=== PATIENT | female | born 1945 | race Caucasian/White ===

== ENCOUNTER 2024-10-23 06:18 | Day surgery (SDC) | payer OTHER, SELFPAY ==
[2024-10-23] VITALS (15 sets, daily range): BP systolic 92–148; BP diastolic 55–103; BMI 27.8
[2024-10-23] MEDS: TYLENOL 325 MG PO (09:06)
== END 2024-10-23 11:50 | disposition home or self-care (01) ==
LOC: CATH 06:18
PROVIDERS: ATTENDING PHYSICIAN Internal Medicine Cardiovascular Disease; OTHER PHYSICIAN Internal Medicine Cardiovascular Disease
DX: Z01.810 Encounter for preprocedural cardiovascular examination (principal); I34.0 Nonrheumatic mitral (valve) insufficiency; I48.92 Unspecified atrial flutter; Z79.01 Long term (current) use of anticoagulants; Z79.890 Hormone replacement therapy
CPT/HCPCS: 99152; 93458; C1894; Q9967

== ENCOUNTER → 2024-11-05 11:06 | Outpatient (REF) | payer OTHER, SELFPAY | LOC: RAD 11:06 | PROVIDERS: ATTENDING PHYSICIAN Thoracic Surgery (Cardiothoracic Vascular Surgery); REFERRING PHYSICIAN Internal Medicine Cardiovascular Disease | DX: I34.0 Nonrheumatic mitral (valve) insufficiency (principal); Z01.810 Encounter for preprocedural cardiovascular examination | CPT/HCPCS: 71275; 74174; Q9967 ==

== ENCOUNTER 2024-11-18 05:09 | Inpatient (IN) | payer OTHER, SELFPAY ==
[2024-10-20 08:31] VITALS: BMI 27.6
[2024-10-20 09:10] LABS: Urine Character Clear (Clear)
[2024-10-20 09:12] LABS: Hematocrit 39.9 % (37.0-47.0); Hemoglobin 13.2 g/dL (12.0-16.0); Mean Corp Hgb Conc. 33.1 g/dL (33.0-37.0); Mean Corpuscular Volume 86.6 fL (81.0-99.0); Nucleated Red Blood Cells % 0 %; Platelet Count 207 10^3/uL (130-400); Red Cell Dist. Width 13.6 % (11.5-14.5)
[2024-10-20 09:24] LABS: INR 1.17; PT 15.2 Sec (11.4-14.6)
[2024-10-20 09:27] LABS: Urine Red Blood Cell 0-2 /HPF (0-2); Urine Squamous Cell 26-30 /LPF (Few); Urine White Cell 16-20 /HPF (0-5)
[2024-10-20 10:03] LABS: ALT (SGPT) 24 U/L (0-35); AST (SGOT) 32 U/L (14-36); Albumin 4.7 g/dl (3.5-5.0); Alkaline Phosphatase 53 U/L (38-126); Blood Urea Nitrogen 21 mg/dl (7-17); Calcium 9.9 mg/dl (8.4-10.2); Carbon Dioxide 26 mmol/L (22-30); Chloride 105 mmol/L (98-107); Estimated Creatinine Clearance 47 ml/min; Glucose 92 mg/dl (70-99); Potassium 4.1 mmol/L (3.5-5.1); Sodium 140 mmol/L (135-145); Total Protein 8.3 g/dl (6.3-8.2); eGFR > 60.00
[2024-10-20 10:35] LABS: Glycohemoglobin (HgbA1c) 5.7 % (4.0-5.6)
--- NOTE | 2024-10-20 14:53 | CM ---
spoke with pt and daughter in PAT's, we discussed preop MVR teaching including driving and lifting restrictions. she is prev indep , lives alone in a ranch home with a basement and 5 steps to enter. she is going to her daughterds home after dc-
nadir shy- [phone] she has the cardiac educ book, soap and instructions. cm role explained and all questions answered. plan is for MV repair 11/18.
--- NOTE | 2024-10-23 08:49 | ITS.CL.CATH ---
Substation Maintenance Technician - Catheterization
Cardiac Catheterization
Procedure Report:
CARDIAC CATHETERIZATION REPORT
Date of Procedure: 10/23/2024
Referring: Jeffrey Villalobos M.D.
INDICATION: Preop for mitral valve repair.
PROCEDURE:
1. Left heart catheterization.
2. Coronary angiography.
A total of 17 minutes of procedural/moderate sedation was utilized. An independent medical appliance maker was present to assist with and help manage the patient's level of consciousness and physiologic status.
ACCESS:
1. 6 Bulgarian right radial artery using a modified Seldinger technique.
CATHETERS:
1. 5 Bulgarian JR4.
2. 5 Bulgarian JL 3.5.
HEMODYNAMIC DATA
Weight (kg): 70.8
AO (s/d/x, mmHg): 129/77/100
LV (s/x mmHg): 132/14
LEFT VENTRICULOGRAPHY: Not performed.
CORONARY ANGIOGRAPHY
Dominance: Right.
Left Main: Normal size, bifurcating vessel. There is no coronary artery disease
LAD: Normal size vessel giving rise to 1 significant diagonal. There is no coronary artery disease.
Ramus: Congenitally absent.
Circumflex: Normal size, nondominant vessel giving rise to 2 obtuse marginals before terminating as a left posterolateral branch. There is no coronary artery disease.
RCA: Normal size, dominant vessel. There is no coronary artery disease.
INTERVENTION(S)
None.
Closure Device: Vascular band.
Radiation (mGy): 277.68
DAP (cm2.Gy): 23.0622
Fluoroscopy time (minutes): 1.6
CONCLUSIONS
1. Right dominant circulation with no coronary artery disease.
2. Mildly elevated filling pressures (LVEDP = 14 mmHg at 70.8 kg).
3. Severe mitral valve regurgitation by echocardiography.
RECOMMENDATIONS:
1. Expectant management after cardiac catheterization via right radial approach.
2. Limited weight bearing on the right wrist for one week.
3. Proceed with preoperative surgical planning as previously discussed.
4. Discontinue aspirin. Patient may resume apixaban this evening.
Copy to: Jeffrey Villalobos M.D., SUKUMAR Mckinney, Lonnie Phan M.D.
Alexander Alvarado DO, FACC, FACP
[2024-11-18] VITALS (17 sets, daily range): BP systolic 88–154; BP diastolic 52–90; BMI 27.6; BMI 26.8
[2024-11-18] MEDS: PROTONIX 40 MG PO (05:24)
[2024-11-18] MEDS: BACTROBAN 2% OINTMENT 1 APPLIC NASAL ×2 (05:25→19:49)
[2024-11-18] MEDS: MAGNESIUM OXIDE 400 MG PO (05:25)
[2024-11-18] MEDS: LOPRESSOR 25 MG PO (05:25)
--- NOTE | 2024-11-18 05:45 | PTCARENOTE ---
pt admitted into room 2265, VS and weight obtained. pt confirms 2 showers @ home and NPO since midnight. admission questions and med rec completed. clip prep and CHG wipes done. ABO drawn and sent. pre-op meds given. daughter at bedside.
--- NOTE | 2024-11-18 06:16 | W.CVOR.SURPR ---
CVOR Surgeon Immed Pre Op
-
I have examined this patient prior to performance of the scheduled procedure.
The patient's condition is unchanged from the time of the dictated/written History and
Physical and the patient is able to undergo the scheduled procedure.
MV repair, LA MAZE, LAAE
[2024-11-18 07:52] LABS: ACT+ - POC 118 Seconds (82-134)
[2024-11-18 08:10] LABS: Urine Character Clear (Clear)
[2024-11-18 08:37] LABS: ACT+ - POC 525 Seconds (82-134)
[2024-11-18 08:59] LABS: B.E. - POC 1.3 mmol/L; Glucose - POC 113 mg/dl (70-99); HCO3 - POC 29 mmol/L (21-28); Hematocrit - POC 33 % PCV (37-47); Hemodilution- POC No; Hemoglobin Calculated - POC 11.2; Ionized Calcium - POC 1.20 mmol/L (1.15-1.33); Lactate - POC 1.35 mmol/L (0.36-0.75); O2 Saturation %Calculated-POC 99.5 % (94-98); PCO2 - POC 56 mmHg (35-48); PO2 - POC 185 mmHg (83-108); Potassium - POC 4.1 mmol/L (3.5-5.1); Sodium - POC 145 mmol/L (136-145); Specimen Type - POC Arterial; pH - POC 7.31 (7.35-7.45)
--- NOTE | 2024-11-18 09:05 | CM ---
pt in OR today, cm following
[2024-11-18 09:12] LABS: ACT+ - POC 652 Seconds (82-134)
[2024-11-18 09:28] LABS: B.E. - POC 3.6 mmol/L; Glucose - POC 152 mg/dl (70-99); HCO3 - POC 26 mmol/L (21-28); Hematocrit - POC 29 % PCV (37-47); Hemodilution- POC Yes; Hemoglobin Calculated - POC 10.0; Ionized Calcium - POC 0.92 mmol/L (1.15-1.33); Lactate - POC 0.62 mmol/L (0.36-0.75); O2 Saturation %Calculated-POC 100.0 % (94-98); PCO2 - POC 31 mmHg (35-48); PO2 - POC 541 mmHg (83-108); Potassium - POC 5.1 mmol/L (3.5-5.1); Sodium - POC 140 mmol/L (136-145); Specimen Type - POC Arterial; pH - POC 7.53 (7.35-7.45)
[2024-11-18 09:39] LABS: ACT+ - POC 535 Seconds (82-134)
[2024-11-18 09:56] LABS: B.E. - POC 3.8 mmol/L; Glucose - POC 158 mg/dl (70-99); HCO3 - POC 28 mmol/L (21-28); Hematocrit - POC 30 % PCV (37-47); Hemodilution- POC Yes; Hemoglobin Calculated - POC 10.3; Ionized Calcium - POC 1.04 mmol/L (1.15-1.33); Lactate - POC 1.01 mmol/L (0.36-0.75); O2 Saturation %Calculated-POC 100.0 % (94-98); PCO2 - POC 43 mmHg (35-48); PO2 - POC 370 mmHg (83-108); Potassium - POC 4.2 mmol/L (3.5-5.1); Sodium - POC 143 mmol/L (136-145); Specimen Type - POC Arterial; pH - POC 7.43 (7.35-7.45)
[2024-11-18 10:09] LABS: ACT+ - POC 541 Seconds (82-134)
[2024-11-18 10:40] LABS: B.E. - POC 1.7 mmol/L; Glucose - POC 131 mg/dl (70-99); HCO3 - POC 27 mmol/L (21-28); Hematocrit - POC 33 % PCV (37-47); Hemodilution- POC Yes; Hemoglobin Calculated - POC 11.2; Ionized Calcium - POC 1.06 mmol/L (1.15-1.33); Lactate - POC 1.96 mmol/L (0.36-0.75); O2 Saturation %Calculated-POC 99.9 % (94-98); PCO2 - POC 42 mmHg (35-48); PO2 - POC 284 mmHg (83-108); Potassium - POC 3.8 mmol/L (3.5-5.1); Sodium - POC 146 mmol/L (136-145); Specimen Type - POC Arterial; pH - POC 7.41 (7.35-7.45)
[2024-11-18 10:43] LABS: ACT+ - POC 164 Seconds (82-134)
--- NOTE | 2024-11-18 10:56 | W.PN.CT.SURG ---
CT Surgery Operative Note
-
CARDIAC SURGERY OPERATIVE REPORT
Preoperative Diagnosis: Exam is mitral valve degeneration with flail segment of the posterior leaflet and severe mitral valve insufficiency, atrial fibrillation
Postoperative Diagnosis: Same
Procedure(s) Performed:
1. Right mini thoracotomy with mini cutdown of the right femoral artery and percutaneous left femoral vein cannulation under CYNTHIA guidance
2. Radical mitral valve repair (triangular section of the lateral segment of the P2 scallop and primary reapproximation of P2 onto P1, 32 mm band annuloplasty)
3. Placement temporary ventricular pacing wires
4. Trans esophageal echocardiography
5. Surgical cryo maze of the left atrium
6. Left atrial appendage exclusion using a 35 mm clip
Date of Surgery: 11/18/2024
Comorbidities:
1. 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
2. Severe mitral valve insufficiency, symptomatic
3. Paroxysmal atrial fibrillation on chronic anticoagulation
4. Hypothyroidism
5. Hyperlipidemia
6. Moderate tricuspid valve insufficiency, functional
Attending Surgeon: Lonnie Phan MD, MS
Assistants: Barbie Hwang PA-C (present and necessary for retraction, suctioning, exposure, suture management, wound closure, etc. under my direction), Cassandra Reyes MD (did portions of the mitral valve repair)
Anesthesiology: Kael Obando MD and Brenden Mercer CRNA
Scrub and Circulating RNs: Levy Mendenhall RN, Rika Cam RN
Baler Operator: Demetri Burger CCP
Anesthesia: GETA
EBL: per perfusion records
Products: none
CPB Time: 107 minutes
Aortic Cross Clamp Time: 86 minutes
Indication(s) for Procedures: This is a very functional 79-year-old female with known mitral valve insufficiency who recently developed atrial fibrillation. She also has some shortness of breath with exertion but otherwise is in very good health.
Given her new onset arrhythmia and symptoms, she was offered surgical repair of her valve as well as addressing her atrial fibrillation at time of surgery.
Mitral Valve Description: Thickening about the anterior posterior leaflets, there is a very obvious flail segment of the posterior leaflet at the P2 scallop towards the lateral aspect. Moderate dilation of the annulus, moderate to severe dilation
of the left atrium.
Implants:
1. 32 mm Garcia physio flex annuloplasty band, serial #[id number]
2. 35mm left atrial appendage clip, serial number [id number]
Specimen:
1. Triangular resection of the posterior leaflet, P2 scallop
MAZE Lesion Sets:
1. Box lesion to posterior LA wall
2. RUDI lesion + RUDI Exclusion + Division of Ligament of Alvarez
3. Coronary sinus lesion
4. Posterior mitral annular line toward P2/P3
Findings: Left ventricular ejection fraction preoperatively was preserved at 65% with no significant regional wall motion abnormalities. She did have PA pressures in the 40s to 50s. There was a mild to moderate degree of tricuspid valve
insufficiency. Following surgery her EF remained the same at 65% with no new regional wall motion abnormalities. She was being paced with an intermittent junctional rhythm. Her mitral valve was myxomatous with a flail segment of P2 and multiple
torn cords. This was resected in a triangular fashion down to the level of the annulus. There was a remnant of P2 on the lateral aspect which I also resected. I then primarily closed the remnant P2 onto P1 essentially obliterating the cleft.
This was done with multiple 5-0 Prolene's in an interrupted [id number] fashion. Next a total of 11 nonpledgeted 2 Ethibond sutures were placed from trigone to trigone securing a 32 mm band annuloplasty with core knots. I had initially placed
2 Hamilton-Torito sutures to the papillary muscle heads preemptively in the event that I would need them later. Testing of the valve revealed good coaptation hide of approximate 8 mm and not concerning for IKER. These Hamilton-Torito sutures were then cut and
removed. A cryo maze was also performed, this included the lesion set listed above. The left atrial appendage ders also clipped through the transverse sinus using a 35mm device. Ensure atrial visualization of the os demonstrated good closure with
no remnant left atrial appendage. After coming off of cardiopulmonary bypass, there is no systolic anterior motion of the anterior mitral valve leaflets, no LVOT obstruction, no residual mitral valve insufficiency, good excursion of both the
anterior and posterior leaflets of the mitral valve, and a mean grain of 2 across the valve. No blood products were required. No inotropic support was started. She resumed her sinus rhythm after short period of ventricular pacing.
Description of Procedure: The patient was brought to the operating room and placed supine in the table with their right side bumped up and right arm down. Arterial and central access was performed by anesthesiology. The patient was prepped from chin
to toes in the typical sterile fashion. Trans esophageal evaluation of cardiac function and all valvular structures was conducted. Before commencing, a time out was performed by all members of the team. All were in agreement with the procedure and
laterality and I proceeded. A small right groin incision was made to expose the common femoral artery and I opted to access the left common femoral vein percutaneously using Seldinger technique. A 5-6 cm right lateral muscle sparing thoracotomy
sweeping the pec major muscle cephalad at the serratus anterior was performed over the 4th intercostal space verified by visualization of the hilum. A total of 35 units of heparin was given. The common femoral artery and vein were cannulated under
transesophageal guidance using open Seldinger technique. The arterial line was verified to have an appropriate bounce and pressure correlating with testing. Once the ACT was above 400, retrograde autologous priming was done and we commenced
cardiopulmonary bypass. Target core temperature was 34�C.
Carbon dioxide was used to flood the field. The course of the phrenic nerve was identified to prevent injury. The pericardium was opened and two stay sutures were placed to facilitate a ``pericardial table.�� The oblique sinus was developed followed
by the inter atrial groove. An antegrade root vent was inserted and secured with a pursestring suture. The pump flow and mean arterial pressure were lowered and an aortic cross clamp was applied to the ascending aorta. A total of 1.2L initial dose
of Antegrade cardioplegia was delivered. We had rapid electro myocardial quiescence at 300 cc of cardioplegia. The ventricle was monitored for distension by echocardiogram during this time. Once cardioplegia was complete, the root vent was turned
on and the left atrial appendage was clipped across the transverse sinus. The left atrium was incised and enlarged. A left atrial lift retractor was placed. The mitral valve was inspected. Cryo maze was then performed using the lesion set above..
The mitral valve was repaired as described above. The left atriotomy was closed with 3-0 prolene in a running fashion leaving a ventricular vent in place to de-air. After filling the heart, the vent was removed and the prolene was secured with a
corknot. Unipolar ventricular pacing wire was placed on the base of the right ventricle. The patient was placed into Trendelenburg position and pump flows were lowered. The clamp was slowly removed with the root vent turned on. De-airing maneuvers
were performed. We started to rewarm with a target of 36.5�C.
As the heart recovered, the mitral valve and ventricular function were assessed under transesophageal echocardiogram. The LV vent and root vents were removed. Once weaning parameters were satisfactory, cardiopulmonary bypass flow was lowered until
we were off cardiopulmonary bypass the mitral valve was inspected again. All surgical sites were inspected for hemostasis and appeared appropriate. We briefly resumed cardiopulmonary bypass to remove the root vent and the Ethibond suture was then
secured with a core knot over pledgets. The lines were clamped and the arterial was relocated to the venous cannula to give back volume. A test dose of protamine was delivered and patient was monitored for any adverse reactions followed by complete
protamine dosing. The femoral vessels were decannulated and repaired as indicated. One 19F Norberto drain remained in the pleural space and threaded into the pericardium. There was an excellent palpable distal pulse to the COMMERCIAL PRODUCER cannulation site. Local
analgesia was injected to the thoracotomy. The incision was closed in layers in a running fashion.
All instrument, sponge, and needle counts were confirmed to be correct x 2 at the end of the operation. The patient was transferred to the cardiac intensive care unit in critical but stable condition.
I, Dr. Lonnie Phan, was present, scrubbed for, and performed all critical elements of this procedure.
Lonnie Phan MD, MS
Cardiothoracic Surgeon
[facility]
This dictation was created using the [employer] dictation system. Please excuse any grammatical, typographical, or 'sound alike' errors
--- NOTE | 2024-11-18 11:16 | W.PN.CD ---
Addendum entered and electronically signed by Kye Wang MD 11/18/24 13:09:
I saw and examined the patient.
The EARLY INTERVENTION SPECIALIST's note was reviewed and I agree with the note.
She Patient seen postop remains intubated. Patient on low-dose pressor with Levophed. In sinus rhythm. ECG with nonspecific T wave abnormality.
- Wean from (per protocol)
- wean pressors as tolerated
- continue postoperative care as directed by CT surgery
- monitor on telemetry for recurrent A-fib
- h/o PAF and on Eliquis preop. Resume anticoagulation when safe from a postoperative standpoint.
Original Note:
Today's Communication / Plan
-
Follow telemetry & I/Os
Postoperative management per CT surgery
Impression / Plan
-
I/P: 79F with MVP with mitral regurgitation, paroxysmal atrial fibrillation, hypertension, and dyslipidemia who presented for mitral valve surgery
Primary cmo: Dr. Jeffrey Villalobos
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 Phan 11/18/2024
- 40% FiO2 with PEEP 8.0, lung recruitment per pulmonary/CTS, CXR pending
- Mildly elevated filling pressures with an LVEDP of 14 mmHg at 70.8 kg during cardiac catheterization, follow I/Os & weights
- EKG with LAFB
- Not requiring ionotropic support
- Postoperative management per CT surgery
Paroxysmal atrial fibrillation
- Follow telemetry
- Oral Anticoagulation: Apixaban 5 mg twice daily on hold, last dose 11/15/2024, resumption per CTS
- [id number]: Score at least 4 (HTN, age 75 or more, female gender)
Tricuspid regurgitation, moderate
Hypertension, chronic and stable follow postoperative
Dyslipidemia, on rosuvastatin 40 mg
Prediabetes, HgbA1c 5.7%
SUBJECTIVE:
Operative notes reviewed. Patient is intubated and sedated.
Physical Exam
Vital Signs/Labs
Vital Signs
Temp Pulse Resp BP Pulse Ox
97.9 F 86 18 144/78 95
11/18/24 05:24 11/18/24 05:24 11/18/24 05:24 11/18/24 05:29 11/18/24 05:24
11/17/24 11/18/24 11/19/24
06:59 06:59 06:59
Actual Weight 70.9 kg
PT 15.2 Sec (11.4-14.6) H 10/20/24 08:41
INR 1.17 10/20/24 08:41
Physical Exam
Constitutional: No acute distress
EENT: Anicteric and Moist mucous membranes
Cardiovascular: Rhythm & rate is regular, S1S2 is normal and Murmur/rub/gallop absent
Respiratory: Lungs clear to auscul. and Other (Mechanical ventilation via ETT)
GI: Soft and Distention absent
Neuro/Psych: Other (Sedated)
Other: Skin (Warm and dry without edema)
Data Reviewed
-
Date of Service: November 18, 2024
EKG: Report Reviewed by me
Echo: Report Reviewed by me
Labs: Labs Reviewed by me
Old Records: Reviewed
[2024-11-18 11:48] LABS: Glucose - Point of Care 95 mg/dl (70-99)
[2024-11-18 11:49] LABS: B.E. - POC -2.5 mmol/L; Glucose - POC 92 mg/dl (70-99); HCO3 - POC 23 mmol/L (21-28); Hematocrit - POC 28 % PCV (37-47); Hemodilution- POC Yes; Hemoglobin Calculated - POC 9.6; Ionized Calcium - POC 1.31 mmol/L (1.15-1.33); Lactate - POC 4.07 mmol/L (0.36-0.75); O2 Saturation %Calculated-POC 92.7 % (94-98); PCO2 - POC 39 mmHg (35-48); PO2 - POC 68 mmHg (83-108); Potassium - POC 3.4 mmol/L (3.5-5.1); Sodium - POC 142 mmol/L (136-145); Specimen Type - POC Arterial; pH - POC 7.37 (7.35-7.45)
[2024-11-18 11:58] LABS: B.E. -1.4 mmol/L; HCO3 25.2 mmol/L (21-28); O2 Saturation % 97.5 % (94-98); PCO2 50 mmHg (32-35); PO2 78 mmHg (83-108); Potassium 3.1 mMOL/L (3.5-5.1); Sodium 140 mMOL/L (136-145)
[2024-11-18] MEDS: LR 250 ML IV ×3 (12:00→15:30)
[2024-11-18] MEDS: KCL 50 IV ×2 (12:05→13:06)
[2024-11-18 12:07] LABS: Hematocrit 31.6 % (37.0-47.0); Hemoglobin 10.5 g/dL (12.0-16.0); Platelet Count 110 10^3/uL (130-400)
[2024-11-18] MEDS: NSS 500 IV (12:07)
[2024-11-18] MEDS: ANCEF 10 IV ×2 (12:08)
[2024-11-18] MEDS: THERAGRAN PO (12:08)
[2024-11-18 12:15] LABS: Blood Urea Nitrogen 13 mg/dl (7-17); Estimated Creatinine Clearance 48 ml/min; Glucose 93 mg/dl (70-99); Magnesium 2.6 mg/dl (1.6-2.3)
[2024-11-18 12:18] LABS: INR 1.35; PT 16.9 Sec (11.4-14.6)
[2024-11-18 12:19] LABS: APTT 28.0 Sec (23.4-35.0)
--- NOTE | 2024-11-18 12:40 | PTCARENOTE ---
pt received from CVOR @~1140, RASS -5. core temp 95.4F, bear hugger applied as ordered. SR on the monitor, HR 60-70s. V wire in place, VVI 40/10. SBP 90-120s, Levophed gtt running as ordered. PAP 20-30s/10s. CVP ~1-5. CI >2. palpable pulses. no
edema. pt mechanically ventilated, ETT #7.0, 22cm@lip. SIMV 14, TV 500, PEEP 8, FIO2 40%. 91-95% POX. CTx1, no air leak or crepitus noted. pt abdomen round, hypoactive BS. Hargrove in place, clear yellow urine. surgical incisions LINETTE, approximated. L
groin dressing intact. RIJ Cordis/swan maintained. R radial Unique flushed, zeroed, and calibrated. PIV. insulin gtt running as ordered. lab work drawn as ordered, EKG performed. CXR completed. LR given as ordered. potassium repleted as ordered.
daughter updated. see worklist for VS, I&O, and assessment.
[2024-11-18 13:00] LABS: Glucose - Point of Care 147 mg/dl (70-99)
[2024-11-18 13:02] LABS: B.E. - POC -0.3 mmol/L; Blood Urea Nitrogen - POC 11 mg/dl (3-120); Chloride - POC 108 mmol/L (96-111); Creatinine - POC 0.83 mg/dl (0.3-1.0); Glucose - POC 140 mg/dl (70-99); HCO3 - POC 25 mmol/L (21-28); Hematocrit - POC 30 % PCV (37-47); Hemodilution- POC Yes; Hemoglobin Calculated - POC 10.3; Ionized Calcium - POC 1.24 mmol/L (1.15-1.33); Lactate - POC 2.60 mmol/L (0.36-0.75); O2 Saturation %Calculated-POC 93.0 % (94-98); PCO2 - POC 42 mmHg (35-48); PO2 - POC 68 mmHg (83-108); Potassium - POC 4.0 mmol/L (3.5-5.1); Sodium - POC 144 mmol/L (136-145); Specimen Type - POC Arterial; pH - POC 7.38 (7.35-7.45)
[2024-11-18] MEDS: TYLENOL PO ×2 (13:09→19:25)
--- NOTE | 2024-11-18 13:42 | CON.INTV ---
Consultation
Consultation Request
Date/Time Consultation Requested: 11/18/2024
Date/Time Consultation Performed: 11/18/2024
Medical History
-
Chief Complaint: Dyspnpea
History of Present Illness:
Patient is a 79-year-old female with known history of myxomatous mitral valve degeneration with progressive mitral regurgitation, who followed up with cardiology services outpatient. She also noted to have atrial fibrillation and was having
shortness of breath. Additional workup included a recent echocardiogram in March 2024 which showed mild pulmonary hypertension with worsening mitral regurgitation. She subsequently had a coronary angiogram performed which did not show any
significant coronary artery disease. Patient was then evaluated by cardiothoracic surgery service and was admitted to the hospital today for mitral valve repair along with maze procedure and left atrial appendage exclusion. Postprocedure, she was
admitted to CVICU and component technician consultation was requested for further input.
Past medical history. Hypothyroidism, hyperlipidemia, hypertension, mitral regurgitation, atrial fibrillation
Social history prior history of smoking.
Allergies / Home Medications
Allergies
Allergy/AdvReac Type Severity Reaction Status Date / Time
bee venom protein (honey bee) Allergy Swelling Verified 10/23/24 06:35
Home Medications
�Medication �Instructions �Recorded �Confirmed �Last Taken �Type
apixaban 5 mg tablet (Eliquis) 5 mg PO BID 10/17/24 11/18/24 11/15/24 09:00 History
atenolol 25 mg tablet 25 mg PO DAILY 10/17/24 11/18/24 11/17/24 09:00 History
calcium 315 mg (as 2 tab PO DAILY 10/17/24 11/18/24 11/11/24 History
citrate)-vitamin D3 6.25 mcg (250
unit) tablet (Citracal + Vitamin D
Maximum)
levothyroxine 100 mcg tablet 100 mcg PO DAILY 10/17/24 11/18/24 11/17/24 09:00 History
multivitamin 1 tab PO DAILY 10/17/24 11/18/24 11/11/24 History
rosuvastatin 40 mg tablet 40 mg PO QPM 10/17/24 11/18/24 11/17/24 18:00 History
Review of Systems
-
Unable to Obtain full review of systems at this time due to: Patient Intubation
Vitals / Labs / Diagnostic Testing
Vital Signs
Temp Pulse Resp BP Pulse Ox
96.4 F L 67 12 99/61 95
11/18/24 13:00 11/18/24 13:05 11/18/24 13:05 11/18/24 13:00 11/18/24 13:05
Lab Data
11/18/24 11:48
Laboratory Results
11/18/24
11:48
PT 16.9 H
INR 1.35
APTT 28.0
pH 7.31 L
pCO2 50 H
pO2 78 L
HCO3 25.2
O2 Delivery Level
Diagnostic Testing:
Physical Exam
-
HEENT: Normocephalic
Cardiovascular: S1/S2
Respiratory: Clear and Non-Labored Respirations
GI: Soft and Non Distended
Neurology: Awake
Skin: Warm
General: Comfortable
Assessment
-
Patient is a 79-year-old female with moderate to severe aortic stenosis, s/p radical mitral valve repair, surgical cryo maze procedure of left atrium, left atrial appendage exclusion, POD # 0
Titrate off pressors per protocol, currently Levophed infusing at 2, MAP of 71. CVP of 3.
ECHO reviewed with normal LVEF
PA catheter readings reviewed, , mean 21.
Management of chest tubes per primary service
Intubated/off sedation, somewhat drowsy, anticipate continued improvement
Pain control
RASS goal of 0 to -1
Intubated for procedure, SBT trial when patient able to spontaneously breath
Current vent settings: SIMV, PEEP 10, 60% FiO2.
AB.31/50/78
CXR appears to have mild vascular congestion with left lower lobe atelectasis, ETT in good position, lines/tubes in place
Lower PEEP as tolerated, can initiate SBT once PEEP is down to 8 and FiO2 50%. If PaO2 on ABG continues to be low, recommend getting a follow-up chest x-ray to evaluate for worsening pulmonary edema or atelectasis.
Extubate per protocol
Maintain supplement oxygen as needed
No prior known history of pulmonary disease
Prior PFTs reviewed
Can add nebulizers if needed
Aspiration precautions
Encouraged incentive spirometry, OOB/ambulation/early mobility
Advance diet as tolerated following extubation
GI prophylaxis: Protonix
Monitor critical I/O's
Hargrove/chest tube output
Hb/platelets postoperatively, mild drift
Trend CBC for now
Can transfuse if indicated for Hb <7, plt <50 in surgical patients
DVT prophylaxis including SCDs
Insulin protocol initiated and ongoing
Transition to SQ/off as indicated per team
Other medical diagnoses:
- Mild Pulmonary HTN. Group II with underlying severe MR
- Hyperlipidemia
- Hypothyroidism
- Paroxysmal atrial fibrillation on chronic anticoagulation
- Moderate tricuspid insufficiency
- HTN
- Pre-DM, A1c 5.7%
Critical Care time 62 mins -- The patient is admitted for acute critical illness for the treatment of vital organ failure and/or prevention of further life-threatening conditions. Total care includes time spent in review of history, physical exam,
medications, hemodynamic/ventilator parameters, laboratory data, imaging and discussion with house staff, pharmacy, respiratory therapy, family day care worker, and nursing
Data:
CTA A/P 11/2024: 1. Normal caliber thoracic aorta with moderate calcified plaque within the arch and descending thoracic aorta.
2. Moderate calcified plaque within the abdominal aorta with focal sac like ectasia posteriorly just inferior to the take off the SMA.
3. Mildly enlarged heart with dilated appearance of the left atrium.
4. Pelvic floor dysfunction with likely prolapsed uterus.
5. Indeterminate right adnexal lesion measuring 5.8 x 4.6 cm with slightly increased attenuation along its medial wall. No definitive enhancement. This may represent a complex cyst. Consider further evaluation with dedicated pelvic ultrasound or
comparison to any prior outside studies.
6. Nonspecific elongated cystic lesion or cluster of cysts along the gastric hepatic ligament measuring 2.7 x 1.0 cm.
7. Additional findings above.
CYNTHIA 11/2024: Moderate to severe mitral regurgitation, prolapsed P2 with a flail segment.
Moderate MAC. Annulus measures 33 x 37 mm.
Normal left ventricular size and systolic function. Stage II diastolic dysfunction.
The ascending aorta has mild atheroma and calcifications.
Mild left atrial enlargement.
Mild tricuspid regurgitation.
LHC 10/2024: 1. Right dominant circulation with no coronary artery disease.
2. Mildly elevated filling pressures (LVEDP = 14 mmHg at 70.8 kg).
3. Severe mitral valve regurgitation by echocardiography.
ECHO 03/2024: 1. Normal LV function. EF 60 to 65% with grade 2 diastolic dysfunction.
2. Normal RV function
3. Mitral valve leaflets are thickened and myxomatous in appearance. There is
moderate posterior mitral valve leaflet prolapse. There is mitral
regurgitation directed anteromedially suggesting a posterior leaflet
abnormality. Degree of mitral regurgitation is always difficult to assess when
regurgitation is eccentric, it is at least moderate, likely moderate to severe
(3+), more significant mitral regurgitation could be considered as well.
4. Moderate left atrial enlargement not appreciated from volumetric
measurements. Other chamber sizes are normal.
5. Mild increase in the right ventricular systolic pressure with moderate
tricuspid regurgitation
PASP 39.
[2024-11-18 14:05] LABS: Glucose - Point of Care 147 mg/dl (70-99)
[2024-11-18] MEDS: DUONEB 3 ML INH (14:22)
--- NOTE | 2024-11-18 14:39 | PTCARENOTE ---
pt awake, drowsy. able to follow commands, MAN. attempted CPAP trial, apneic periods. pt placed on SIMV 14, TV 500, PEEP 10, FIO2 60% per AMBULANCE OFFICER Seda. POX 99%.
[2024-11-18 15:07] LABS: Glucose - Point of Care 104 mg/dl (70-99)
[2024-11-18] MEDS: PACERONE PO (15:08)
[2024-11-18] MEDS: NEURONTIN PO (15:08)
[2024-11-18 15:50] LABS: Glucose - Point of Care 112 mg/dl (70-99)
[2024-11-18 15:51] LABS: B.E. - POC -1.1 mmol/L; Blood Urea Nitrogen - POC 14 mg/dl (3-120); Chloride - POC 110 mmol/L (96-111); Creatinine - POC 0.87 mg/dl (0.3-1.0); Glucose - POC 125 mg/dl (70-99); HCO3 - POC 25 mmol/L (21-28); Hematocrit - POC 35 % PCV (37-47); Hemodilution- POC Yes; Hemoglobin Calculated - POC 11.8; Ionized Calcium - POC 1.24 mmol/L (1.15-1.33); Lactate - POC 2.91 mmol/L (0.36-0.75); O2 Saturation %Calculated-POC 97.7 % (94-98); PCO2 - POC 48 mmHg (35-48); PO2 - POC 108 mmHg (83-108); Potassium - POC 3.9 mmol/L (3.5-5.1); Sodium - POC 147 mmol/L (136-145); Specimen Type - POC Arterial; pH - POC 7.33 (7.35-7.45)
--- NOTE | 2024-11-18 16:08 | PTCARENOTE ---
RT at bedside to extubate patient. Pt extubated at 1608 to 6L NC. POX 97%. Pt alert and oriented x4. IS completed 500mL achieved.
[2024-11-18] MEDS: ZOFRAN 4 MG IV (16:31)
[2024-11-18 16:46] LABS: Hematocrit 33.0 % (37.0-47.0); Hemoglobin 11.1 g/dL (12.0-16.0); Platelet Count 141 10^3/uL (130-400)
[2024-11-18] MEDS: OFIRMEV 100 IV (16:51)
[2024-11-18] MEDS: DILAUDID 0.25 MG IV (17:37)
[2024-11-18] MEDS: ANCEF 5 IV (17:38)
[2024-11-18] MEDS: CRESTOR 40 MG PO (17:57)
[2024-11-18] MEDS: LOW STRENGTH ASPIRIN 81 MG PO (17:57)
--- NOTE | 2024-11-18 18:00 | PTCARENOTE ---
pt c/o surgical site pain, PRN Dilaudid 0.25mg IVP given as ordered. IS encouraged. SENIOR CHEMIST aware of H&H results.
[2024-11-18 18:05] LABS: Glucose - Point of Care 101 mg/dl (70-99)
--- NOTE | 2024-11-18 19:40 | PTCARENOTE ---
Pacing wires inappropriately pacing. ma changed from [address] PA Ed[address]
[2024-11-18] MEDS: SENOKOT 8.6 MG PO (19:48)
[2024-11-18 20:08] LABS: Glucose - Point of Care 98 mg/dl (70-99)
[2024-11-18 20:29] LABS: Blood Urea Nitrogen 15 mg/dl (7-17); Calcium 8.3 mg/dl (8.4-10.2); Carbon Dioxide 25 mmol/L (22-30); Chloride 110 mmol/L (98-107); Estimated Creatinine Clearance 55 ml/min; Glucose 106 mg/dl (70-99); Magnesium 2.2 mg/dl (1.6-2.3); Potassium 4.5 mmol/L (3.5-5.1); Sodium 139 mmol/L (135-145); eGFR > 60.00
--- NOTE | 2024-11-18 20:31 | PTCARENOTE ---
Patient received from RN @ 1900. Patient lying in bed w/ call eugene in reach. AOx3 SR w/ prolonged QT on monitor. BP 116/53 HR 69. Heart sounds distant. Radial and pedal pulses present. No edema noted. V-wires present and set to 40/5/2.
Lungs diminished in bases. POX 95% 4L NC. IS 1000. Right lateral CT set to -20 suction draining serosanguineous fluid. No crepitus, tidaling, or air leaks noted. Bowel sounds hypoactive. Hargrove draining clear yellow urine. All surgical sites
C/D/I. Right lateral CT dressing small amount old drainage on dressing noted. RIJ w/ swan @ 45 PAP 28/12 CVP 4 CI 2.03. Right radial A-line patent and intact. All lines leveled and zeroed. Insulin and Levo infusing per protocol.
[2024-11-18] MEDS: CALCIUM GLUCONATE 130 MG IV (20:55)
[2024-11-18] MEDS: PACERONE 200 MG PO (21:17)
[2024-11-18] MEDS: NEURONTIN 100 MG PO (21:17)
[2024-11-18 22:13] LABS: Glucose - Point of Care 115 mg/dl (70-99)
--- NOTE | 2024-11-18 22:47 | W.PN.CT ---
Assessment / Plan
-
Assessment:
-S/P Right mini thoracotomy/Radical mitral valve repair (triangular section of the lateral segment of the P2 scallop and primary reapproximation of P2 onto P1, 32 mm band annuloplasty)/Surgical cryo maze of the left atrium/Left atrial appendage
exclusion using a 35 mm clip, by Dr. Phan, 11/18/24, pod #1
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
-Severe mitral valve insufficiency, symptomatic
-Moderate tricuspid valve insufficiency, functional
-Paroxysmal atrial fibrillation on chronic anticoagulation
-S/P DCCV @ [facility] 2 months ago
-LVEF 60-65% preop, 55-60% postop per intraop CYNHTIA
-Hypothyroidism
-Hyperlipidemia
-Prediabetes (hgb A1C 5.7)
-HPV
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
-Former tobacco use (quit 10yrs ago)
-Anxiety
-Acute postop blood loss/Anemia (stable without blood transfusion)
-Acute postop thrombocytopenia (stable without active bleed)
-Acute postop atelectasis
-Acute postop hypoxemia
-Acute postop respiratory acidosis
-Acute postop hypokalemia
-Acute postop hypovolemia with subsequent hypervolemia
Plan:
-No major issues overnight. Hemodynamically and neurologically intact
-Slow to awaken from anesthesia postop
-Successfully extubated on 11/18/24 @ 1608
-Weaned off Levophed gtt last night. Remains on insulin gtt per protocol
-Last CI, MVO2 , U/O since OR
-Monitor chest tube output: R pleural/med:
-Cont. current meds (ASA, Amiodarone, Lopressor-was on Atenolol @ home, Synthroid, Crestor, Protonix)
-D/C'd swan and a-line @ 0430
-Will d/c faustin catheter @ 0600
-Maintain temporary PW (will likely pull tomorrow)
-Maintain cordis for meds and phlebotomy
-Will need d/c of left groin stich
-Will need repeat echo tomorrow to reassess MV repair
-Wean O2 as tolerated
-Encourage use of IS
-OOB into chair/Ambulate
Subjective
-
Date of Service: November 18, 2024
Objective Data
-
Lab Results
11/18/24 15:50
11/18/24 19:57
PT 16.9 Sec (11.4-14.6) H 11/18/24 11:48
INR 1.35 11/18/24 11:48
APTT 28.0 Sec (23.4-35.0) 11/18/24 11:48
Vital Signs
Vital Signs
Temp Pulse Resp BP Pulse Ox
98.4 F 72 16 114/69 93
11/18/24 22:00 11/18/24 22:00 11/18/24 22:00 11/18/24 22:00 11/18/24 22:00
CT Intake/Output/Weight
11/18/24 11/18/24 11/19/24
06:59 18:59 06:59
Intake Total 1366.5 / 1525.4 158.9 / 1525.4
Output Total 620 / 900 280 / 900
Balance 746.5 / 625.4 -121.1 / 625.4
SaO2: 93
--- NOTE | 2024-11-18 23:14 | PTCARENOTE ---
Patient reassessed. All surgical sites intact. SR w/ prolonged QT on monitor. PVC couplets noted, CT PA Ed aware. BP 129/54 HR 70 POX 97% 4L NC.
[2024-11-18 23:57] LABS: Glucose - Point of Care 91 mg/dl (70-99)
[2024-11-19] VITALS (21 sets, daily range): BP systolic 92–128; BP diastolic 41–107; PULSE 89; O2SAT 94–96; BMI 27.6
--- NOTE | 2024-11-19 02:15 | DOWNTIME ---
There was a [employer] Client Filling Layer Up Downtime on 11/19/2024 from 0100 to 11/19/2024 at 0215. Downtime documentation of patient's care, including medication administrations, has been reconciled in the electronic record per guidelines. Refer to the
patient's paper chart under the miscellaneous tab to see printed paper medication records and downtime forms.
[2024-11-19] MEDS: ANCEF 5 IV ×2 (02:25→10:46)
[2024-11-19 03:00] LABS: Hematocrit 29.6 % (37.0-47.0); Hemoglobin 10.0 g/dL (12.0-16.0); Mean Corp Hgb Conc. 33.8 g/dL (33.0-37.0); Mean Corpuscular Volume 84.8 fL (81.0-99.0); Platelet Count 108 10^3/uL (130-400); Red Cell Dist. Width 13.7 % (11.5-14.5)
[2024-11-19 03:22] LABS: Blood Urea Nitrogen 16 mg/dl (7-17); Calcium 9.3 mg/dl (8.4-10.2); Carbon Dioxide 25 mmol/L (22-30); Chloride 109 mmol/L (98-107); Estimated Creatinine Clearance 55 ml/min; Glucose 114 mg/dl (70-99); Magnesium 2.0 mg/dl (1.6-2.3); Potassium 4.6 mmol/L (3.5-5.1); Sodium 138 mmol/L (135-145); eGFR > 60.00
[2024-11-19 04:00] LABS: Glucose - Point of Care 100 mg/dl (70-99)
--- NOTE | 2024-11-19 04:05 | W.PN.CT ---
Today's Communication / Plan
-
Plan:
-No major issues overnight. Hemodynamically and neurologically intact
-Slow to awaken from anesthesia postop
-Successfully extubated on 11/18/24 @ 1608
-Weaned off Levophed gtt last night. Remains on insulin gtt per protocol
-Last CI 2.5, MVO2 69.3%, U/O since OR 1095 mL
-Currently in NSR @ 76 bpm
-Monitor chest tube output: R pleural/med: 145/245
-Cont. current meds (ASA, Amiodarone, Lopressor-was on Atenolol @ home, Synthroid, Crestor, Protonix)
-D/C'd swan and a-line @ 0430
-Will d/c faustin catheter @ 0600
-Maintain temporary PW (will likely pull tomorrow)
-Maintain cordis for meds and phlebotomy
-Will need d/c of left groin stitch
-Will need repeat echo tomorrow to reassess MV repair
-Wean O2 as tolerated
-Encourage use of IS
-OOB into chair/Ambulate
Assessment / Plan
-
Assessment:
-S/P Right mini thoracotomy/Radical mitral valve repair (triangular section of the lateral segment of the P2 scallop and primary reapproximation of P2 onto P1, 32 mm band annuloplasty)/Surgical cryo maze of the left atrium/Left atrial appendage
exclusion using a 35 mm clip, by Dr. Phan, 11/18/24, pod #1
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
-Severe mitral valve insufficiency, symptomatic
-Moderate tricuspid valve insufficiency, functional
-Paroxysmal atrial fibrillation on chronic anticoagulation
-S/P DCCV @ [facility] 2 months ago
-LVEF 60-65% preop, 55-60% postop per intraop CYNTHIA
-Hypothyroidism
-Hyperlipidemia
-Prediabetes (hgb A1C 5.7)
-HPV
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
-Former tobacco use (quit 10yrs ago)
-Anxiety
-Acute postop blood loss/Anemia (stable without blood transfusion)
-Acute postop thrombocytopenia (stable without active bleed)
-Acute postop atelectasis
-Acute postop hypoxemia
-Acute postop respiratory acidosis
-Acute postop hypokalemia
-Acute postop hypovolemia with subsequent hypervolemia
Discussed patient care with: Cardiology, Nursing, Respiratory Therapy, Pharmacy and Care Team
Subjective
Procedure
S/P Right mini thoracotomy/Radical mitral valve repair (triangular section of the lateral segment of the P2 scallop and primary reapproximation of P2 onto P1, 32 mm band annuloplasty)/Surgical cryo maze of the left atrium/Left atrial appendage
exclusion using a 35 mm clip, by Dr. Phan, 11/18/24
-
Date of Service: November 19, 2024
Pt c/o incisional pain, otherwise feels well
Objective Data
-
Lab Results
11/19/24 02:37
11/19/24 02:37
PT 16.9 Sec (11.4-14.6) H 11/18/24 11:48
INR 1.35 11/18/24 11:48
APTT 28.0 Sec (23.4-35.0) 11/18/24 11:48
Vital Signs
Vital Signs
Temp Pulse Resp BP Pulse Ox
98.3 F 77 20 110/59 93
11/19/24 03:56 11/19/24 04:00 11/19/24 04:00 11/19/24 04:00 11/19/24 04:00
CT Intake/Output/Weight
11/18/24 11/18/24 11/19/24
06:59 18:59 06:59
Intake Total 1366.5 / 1682.5 316.0 / 1682.5
Output Total 620 / 1340 720 / 1340
Balance 746.5 / 342.5 -404.0 / 342.5
SaO2: 93 (2L)
Physical Exam
-
General: Awake, Oriented and AOx3
Cardiovascular: Regular rate & rhythm, No Murmurs, No Rub and No Gallop
Respiratory: Decreased Breath Sounds (at bases, otherwise clear)
Sternum: Stable
Incision: Clean, Dry, Intact and Dressing Intact
Extremities: No Edema
Data Reviewed
-
Lab Results: Results Reviewed
Medications: Active Meds Reviewed
Chest X-Ray: Report Reviewed and Image Reviewed
ECG: Report Reviewed and Image Reviewed
--- NOTE | 2024-11-19 04:44 | PTCARENOTE ---
Patient reassessed. SR w/ prolonged QT. VSS. 6 beat run of VT noted @ [address] PA Ed aware. A-line and swan removed per CT PA Ed.
[2024-11-19 06:07] LABS: Glucose - Point of Care 111 mg/dl (70-99)
[2024-11-19] MEDS: TYLENOL 975 MG PO ×3 (06:16→20:34)
[2024-11-19] MEDS: SYNTHROID 100 MCG PO (06:16)
--- NOTE | 2024-11-19 07:55 | W.PN.INTV ---
Today's Communication / Plan
Recommendations
- Incentive spirometry
- Wean oxygen as tolerated, target saturation 90% or above
- Transition insulin infusion per protocol
- Outpatient follow-up with [facility] pulmonary clinic for formal pulmonary function testing and 6-minute walk test
- Supervisor Money Room service will sign off once patient is transferred out of CVICU.
Assessment
-
Patient is a 79-year-old female with moderate to severe aortic stenosis, s/p radical mitral valve repair, surgical cryo maze procedure of left atrium, left atrial appendage exclusion, POD # 1
Titrated off pressors per protocol, MAP of 86, not requiring any pressors
ECHO reviewed with normal LVEF
PA catheter removed
Management of chest tubes per primary service
Extubated now, saturating 92% on 2 L supplemental oxygen. X-ray with mild atelectasis in the lower lobes, predominantly on the left side, encouraged incentive spirometry
Maintain supplement oxygen as needed
No prior known history of pulmonary disease, however has smoked from teen age until age 69, intermittently. Mild intermittent cough with phlegm production. Might have underlying COPD. Will have her folloe up in Pulmonary clinic for PFTs and 6 min
walk test as out patient.
Can add nebulizers if needed
Aspiration precautions
Encouraged incentive spirometry, OOB/ambulation/early mobility
Advance diet as tolerated following extubation
GI prophylaxis: Protonix
Monitor critical I/O's
Hargrove/chest tube output
Hb/platelets postoperatively, mild drift
Trend CBC for now
Can transfuse if indicated for Hb <7, plt <50 in surgical patients
DVT prophylaxis including SCDs
Insulin protocol initiated and ongoing
Transition to SQ/off as indicated per team
Other medical diagnoses:
- Mild Pulmonary HTN. Group II with underlying severe MR
- Hyperlipidemia
- Hypothyroidism
- Paroxysmal atrial fibrillation on chronic anticoagulation
- Moderate tricuspid insufficiency
- HTN
- Pre-DM, A1c 5.7%
- H/o Smoking, teen age to age 69. Out patient PFTs.
Critical Care time 42 mins -- The patient is admitted for acute critical illness for the treatment of vital organ failure and/or prevention of further life-threatening conditions. Total care includes time spent in review of history, physical exam,
medications, hemodynamic/ventilator parameters, laboratory data, imaging and discussion with house staff, pharmacy, respiratory therapy, resident physician, and nursing
Data:
CTA A/P 11/2024: 1. Normal caliber thoracic aorta with moderate calcified plaque within the arch and descending thoracic aorta.
2. Moderate calcified plaque within the abdominal aorta with focal sac like ectasia posteriorly just inferior to the take off the SMA.
3. Mildly enlarged heart with dilated appearance of the left atrium.
4. Pelvic floor dysfunction with likely prolapsed uterus.
5. Indeterminate right adnexal lesion measuring 5.8 x 4.6 cm with slightly increased attenuation along its medial wall. No definitive enhancement. This may represent a complex cyst. Consider further evaluation with dedicated pelvic ultrasound or
comparison to any prior outside studies.
6. Nonspecific elongated cystic lesion or cluster of cysts along the gastric hepatic ligament measuring 2.7 x 1.0 cm.
7. Additional findings above.
CYNTHIA 11/2024: Moderate to severe mitral regurgitation, prolapsed P2 with a flail segment.
Moderate MAC. Annulus measures 33 x 37 mm.
Normal left ventricular size and systolic function. Stage II diastolic dysfunction.
The ascending aorta has mild atheroma and calcifications.
Mild left atrial enlargement.
Mild tricuspid regurgitation.
LHC 10/2024: 1. Right dominant circulation with no coronary artery disease.
2. Mildly elevated filling pressures (LVEDP = 14 mmHg at 70.8 kg).
3. Severe mitral valve regurgitation by echocardiography.
ECHO 03/2024: 1. Normal LV function. EF 60 to 65% with grade 2 diastolic dysfunction.
2. Normal RV function
3. Mitral valve leaflets are thickened and myxomatous in appearance. There is
moderate posterior mitral valve leaflet prolapse. There is mitral
regurgitation directed anteromedially suggesting a posterior leaflet
abnormality. Degree of mitral regurgitation is always difficult to assess when
regurgitation is eccentric, it is at least moderate, likely moderate to severe
(3+), more significant mitral regurgitation could be considered as well.
4. Moderate left atrial enlargement not appreciated from volumetric
measurements. Other chamber sizes are normal.
5. Mild increase in the right ventricular systolic pressure with moderate
tricuspid regurgitation
PASP 39.
Subjective Dataa
Subjective Data
Date of Service:
Date of Service: November 19, 2024
Subjective:
Patient comfortably sitting in chair in no acute distress.
Review of Systems
Genitourinary: Other (All 14 systems reviewed and negative except as stated above in the history of present illness.)
Objective Data
Data Reviewed
Vital Signs / I&O / Oxygen:
Vital Signs
Temp Pulse Resp BP Pulse Ox
98.3 F 80 16 108/61 93
11/19/24 03:56 11/19/24 06:00 11/19/24 06:00 11/19/24 06:00 11/19/24 06:00
Intake and Output
11/18/24 11/19/24 11/20/24
06:59 06:59 06:59
Intake Total 1726.1 / 1726.1
Output Total 1535 / 1535
Balance 191.1 / 191.1
SaO2 [SIMV] 98
SaO2 93
Nasal Cannula flow liters per 2
minute
Physical Exam
General: Comfortable
HEENT: Normocephalic
Cardiovascular: S1-S2 and Peripheral Edema (Trace edema )
Respiratory: Clear and Non-Labored Respirations
GI: Soft and Distended
Neurology: Awake
Skin: Warm
Labs/Micro/Reports
Lab Data
11/19/24 02:37
11/19/24 02:37
Laboratory Results
11/18/24 11/18/24
11:48 16:00
PT 16.9 H
INR 1.35
APTT 28.0
pH 7.31 L Cancelled
pCO2 50 H Cancelled
pO2 78 L Cancelled
HCO3 25.2 Cancelled
O2 Delivery Level Cancelled
[2024-11-19 07:57] LABS: Glucose - Point of Care 108 mg/dl (70-99)
--- NOTE | 2024-11-19 08:11 | W.PN.CD ---
Today's Communication / Plan
-
- Restart Metoprolol and ASA
- When bleeding risk is low, switch to Eliquis.
Impression / Plan
-
I/P: 79F with MVP with mitral regurgitation, paroxysmal atrial fibrillation, hypertension, and dyslipidemia s/p Right mini thoracotomy/Radical mitral valve repair (triangular section of the lateral segment of the P2 scallop and primary
reapproximation of P2 onto P1, 32 mm band annuloplasty)/Surgical cryo maze of the left atrium/Left atrial appendage exclusion using a 35 mm clip, by Dr. Phan, 11/18/24.
Primary bass singer: Dr. Jeffrey Villalobos
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 Phan 11/18/2024
- Extubated now.
- Off the Levophed.
- EKG with sinus and LAFB
- Not requiring ionotropic support
- Postoperative management per CT surgery
- Temp epicardial wires in place.
- Chest tubes as per CTS
- Metoprolol started.
Paroxysmal atrial fibrillation
- Follow telemetry
- s/p Cryo Maze and RUDI clipped.
- Oral Anticoagulation: Apixaban 5 mg twice daily on hold, last dose 11/15/2024, resumption per CTS
- [id number]: Score at least 4 (HTN, age 75 or more, female gender)
Tricuspid regurgitation, moderate
Hypertension, chronic and stable follow postoperative
Dyslipidemia, on rosuvastatin 40 mg
Prediabetes, HgbA1c 5.7%
SUBJECTIVE:
Extubated. off pressors. OOB and IS
Physical Exam
Vital Signs/Labs
Vital Signs
Temp Pulse Resp BP Pulse Ox
98.3 F 74 16 109/72 92
11/19/24 03:56 11/19/24 07:55 11/19/24 06:00 11/19/24 07:00 11/19/24 07:55
11/18/24 11/19/24 11/20/24
06:59 06:59 06:59
Actual Weight 70.9 kg 73 kg
11/19/24 02:37
11/19/24 02:37
PT 16.9 Sec (11.4-14.6) H 11/18/24 11:48
INR 1.35 11/18/24 11:48
APTT 28.0 Sec (23.4-35.0) 11/18/24 11:48
Magnesium 2.0 mg/dl (1.6-2.3) 11/19/24 02:37
Physical Exam
Constitutional: No acute distress and Comfortable
EENT: Anicteric and Moist mucous membranes
Cardiovascular: Rhythm & rate is regular, Pedal edema is absent and JVD pressure is normal
Respiratory: Respiratory effort normal, Wheeze Absent and Crackles Present
GI: Soft and Non tender
Neuro/Psych: Alert, Oriented and AO x 3
Data Reviewed
-
Date of Service: November 19, 2024
Medical Decision Making: Reviewed Test Results, Test Interpretation and Review of Case with other Provider
EKG: Tracing Personally Visualized and interpreted
Echo: Report Reviewed by me
Labs: Labs Reviewed by me
Old Records: Reviewed
Critical Care Time (in minutes): 35
--- NOTE | 2024-11-19 08:15 | PTCARENOTE ---
Assumed care of patient. Walking rounds completed. Pt assessed while she was sitting in the chair. Pt alert and oriented x4. Pt denies pain, shortness of breath, and nausea. Reports difficulty taking a deep breath in. MAN with equal strength
throughout. SR with prolonged QT with rates in the 70s. BP 102/56. Heart tones audible. Bilateral radial and DP pulses palpable. Trace ankle edema. Epicardial v-wire set to back up 40/5, no pacing noted. POX 93% on 2L NC. Lungs diminished
throughout. IS encouraged-750mL achieved. Right pleural/mediastinal chest tube to -20cm suction draining serosanguinous fluid, output WNL. No air leak, tidaling, crepitus. Abdomen soft, round, nontender. Hypoactive BS. Pt reports passing gas.
Tolerating clear liquid diet. DTV post faustin removal. Right lateral chest incision approximated with skin glue, [employer]. Mid chest puncture site approximated, LINETTE. Left groin puncture site with 4x4, CDI. Right groin incision approximated with skin glue,
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 CT dressing CDI. Right IJ cordis intact with NSS KVO. Right AC 20 PIV intact with insulin infusing per critical care glycemic protocol. See MAR for medication administration. See worklist for complete nursing assessment. Plan of care reviewed
and patient in agreement.
--- NOTE | 2024-11-19 08:15 | W.PN.ANS.POP ---
Anesthesia Post Operative
- Anesthesia Post Op Note
Vital Signs Stable-See Nursing Note: Yes
Airway Patent: Yes
Adequate Pain Control: Yes
Change in Mental Status: No
Current Postoperative Nausea & Vomiting: No
Anesthesia Complications: No
General Anesthetic Recall: No
Unplanned Admission: No
Post Op Hydration Adequate: Yes
- -
Pt OOB, no anesthesia related complications, VSS.
[2024-11-19 08:35] LABS: Glucose - Point of Care 113 mg/dl (70-99)
[2024-11-19] MEDS: BACTROBAN 2% OINTMENT 1 APPLIC NASAL ×2 (08:35→20:19)
[2024-11-19] MEDS: LIDOCAINE 4% PATCH 1 PATCH TOPICAL (08:35)
[2024-11-19] MEDS: PROTONIX 40 MG PO (08:36)
[2024-11-19] MEDS: LOPRESSOR 12.5 MG PO ×2 (08:36→20:19)
[2024-11-19] MEDS: LOW STRENGTH ASPIRIN 81 MG PO (08:36)
[2024-11-19] MEDS: SENOKOT 8.6 MG PO (08:36)
[2024-11-19] MEDS: MAGNESIUM OXIDE 400 MG PO ×2 (08:36→20:19)
[2024-11-19] MEDS: NEURONTIN 100 MG PO ×3 (08:36→21:24)
[2024-11-19] MEDS: THERAGRAN 1 TABLET PO (08:36)
[2024-11-19] MEDS: PACERONE 200 MG PO ×3 (08:36→21:24)
[2024-11-19] MEDS: NSS IV (08:47)
[2024-11-19 10:05] LABS: Glucose - Point of Care 104 mg/dl (70-99)
--- NOTE | 2024-11-19 12:00 | PTCARENOTE ---
Pt reassessed. Resting comfortably in the chair. SR with rates in the 70s. BP 98/56, denies dizziness, pain, shortness of breath, nausea. POX 93% on 1L NC. CT output WNL. Surgical sites stable. Insulin gtt d/c per orders. Remains DTV. No acute
changes.
[2024-11-19 12:01] LABS: Glucose - Point of Care 121 mg/dl (70-99)
--- NOTE | 2024-11-19 13:07 | PTCARENOTE ---
Pt bladder scanned for 255mL. Pt does not have urge to urinate at this time.
[2024-11-19] MEDS: FERRLECIT 110 MG IV (14:42)
[2024-11-19] MEDS: LASIX 40 MG IV (14:44)
--- NOTE | 2024-11-19 16:00 | PTCARENOTE ---
Pt reassessed. NSR on tele with rates in the 80s. POX 92% on 1L NC. Surgical sites stable. CT output WNL, draining serosanguineous fluid. 1 assist to stand to pivot to the commode. Pt voiding adequate amounts of clear yellow urine. Cordis and PIV
intact. No other acute changes.
[2024-11-19] MEDS: CRESTOR 40 MG PO (17:52)
--- NOTE | 2024-11-19 19:15 | PTCARENOTE ---
Patient received from RN @ 1900. Patient sitting in chair w/ call eugene in reach. AOx3. SR w/ prolonged QT on monitor. BP 110/50 HR 84. Heart sounds audible. V-wires set to 40/5/2. Radial and pedal pulses present. Bilateral trace ankle edema
noted. IS 750. POX 91% 1L NC. Lungs diminished in bases bilaterally. Right lateral CT draining serosanguineous fluid set to -20 suction. No crepitus, tidaling, or air leaks noted. Hypoactive bowel sounds. Voiding clear yellow urine. RIJ
cordis and Right PIV patent and intact. All surgical sites are C/D/I. See worklist for more details.
[2024-11-19] MEDS: SENOKOT PO ×2 (20:19→20:36)
[2024-11-19] MEDS: REMOVE LIDOCAINE PATCH 1 PATCH REMOVE (20:32)
[2024-11-20] VITALS (13 sets, daily range): BP systolic 85–153; BP diastolic 42–98; PULSE 88; O2SAT 94–97; BMI 27.7
--- NOTE | 2024-11-20 00:55 | PTCARENOTE ---
Patient reassessed. SR w/ prolonged QT. BP 95/48 HR 65 POX 92% 1L NC. Patient sleeping comfortably.
[2024-11-20 03:55] LABS: Hematocrit 27.5 % (37.0-47.0); Hemoglobin 9.1 g/dL (12.0-16.0); Mean Corp Hgb Conc. 33.1 g/dL (33.0-37.0); Mean Corpuscular Volume 86.2 fL (81.0-99.0); Platelet Count 101 10^3/uL (130-400); Red Cell Dist. Width 14.0 % (11.5-14.5)
[2024-11-20 04:18] LABS: Blood Urea Nitrogen 31 mg/dl (7-17); Calcium 8.5 mg/dl (8.4-10.2); Carbon Dioxide 31 mmol/L (22-30); Chloride 104 mmol/L (98-107); Estimated Creatinine Clearance 49 ml/min; Glucose 146 mg/dl (70-99); Magnesium 2.1 mg/dl (1.6-2.3); Potassium 4.6 mmol/L (3.5-5.1); Sodium 136 mmol/L (135-145); eGFR > 60.00
--- NOTE | 2024-11-20 04:45 | PTCARENOTE ---
Patient reassessed. SR on monitor. BP 109/50 HR 67 POX 93% 1L NC. Patient resting comfortably.
[2024-11-20] MEDS: SYNTHROID 100 MCG PO (05:25)
[2024-11-20] MEDS: TYLENOL 975 MG PO ×3 (05:25→20:14)
--- NOTE | 2024-11-20 05:53 | W.PN.CT ---
Today's Communication / Plan
-
-pod #2
-no issues overnight
-low BPs yesterday -tolerated BB and Amio, denies any dizziness
-CT output 85/210 in 12/24 hrs
-got 40 iv Lasix on 11/19 - UO 825/1975 in 12/24 hrs
-Echo on 11/21
-has pw (VVI 40 backup)
-current meds (ASA, Crestor, Lopressor 12.5 bid, Amio, Protonix, Mg)
-encourage IS, OOB, ambulate
Assessment / Plan
-
Assessment:
-S/P Right mini thoracotomy/Radical mitral valve repair (triangular section of the lateral segment of the P2 scallop and primary reapproximation of P2 onto P1, 32 mm band annuloplasty)/Surgical cryo maze of the left atrium/Left atrial appendage
exclusion using a 35 mm clip, by Dr. Phan, 11/18/24, pod #2
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
-Severe mitral valve insufficiency, symptomatic
-Moderate tricuspid valve insufficiency, functional
-Paroxysmal atrial fibrillation on chronic anticoagulation
-S/P DCCV @ [facility] 2 months ago
-LVEF 60-65% preop, 55-60% postop per intraop CYNTHIA
-Hypothyroidism
-Hyperlipidemia
-Prediabetes (hgb A1C 5.7)
-HPV
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
-Former tobacco use (quit 10yrs ago)
-Anxiety
-Acute postop blood loss/Anemia (stable without blood transfusion)
-Acute postop thrombocytopenia (stable without active bleed)
-Acute postop atelectasis
-Acute postop hypoxemia
-Acute postop respiratory acidosis
-Acute postop hypokalemia
-Acute postop hypovolemia with subsequent hypervolemia
Discussed patient care with: Nursing and Care Team
Subjective
Procedure
S/P Right mini thoracotomy/Radical mitral valve repair (triangular section of the lateral segment of the P2 scallop and primary reapproximation of P2 onto P1, 32 mm band annuloplasty)/Surgical cryo maze of the left atrium/Left atrial appendage
exclusion using a 35 mm clip, by Dr. Phan, 11/18/24
-
Date of Service: November 20, 2024
Objective Data
-
Lab Results
11/20/24 03:47
11/20/24 03:47
PT 16.9 Sec (11.4-14.6) H 11/18/24 11:48
INR 1.35 11/18/24 11:48
APTT 28.0 Sec (23.4-35.0) 11/18/24 11:48
Vital Signs
Vital Signs
Temp Pulse Resp BP Pulse Ox
98.4 F 65 15 109/50 94
11/20/24 03:51 11/20/24 04:00 11/20/24 00:00 11/20/24 03:53 11/20/24 04:00
CT Intake/Output/Weight
11/19/24 11/19/24 11/20/24
06:59 18:59 06:59
Intake Total 359.6 / 1738.4 849.6 / 889.6 40 / 889.6
Output Total 915 / 1575 1275 / 2185 910 / 2185
Balance -555.4 / 163.4 -425.4 / -1295.4 -870 / -1295.4
SaO2: 94
Physical Exam
-
General: Awake and AOx3
Cardiovascular: Regular rate & rhythm, No Murmurs and No Rub
Respiratory: Decreased Breath Sounds
Sternum: Stable
Incision: Clean, Dry and Intact
Extremities: Other (trace edema, L>R. 1+ DPs b/l)
Abdomen: soft, nontender, nondistended, + bowels sounds
Data Reviewed
-
Lab Results: Results Reviewed
Medications: Active Meds Reviewed
Chest X-Ray: Report Reviewed and Image Reviewed
ECG: Report Reviewed and Image Reviewed
--- NOTE | 2024-11-20 08:00 | PTCARENOTE ---
Patient received from prev RN. walking rounds completed. Patient sitting in chair at time of assessment. AOx3. SR HR 70s. temp V-wire set to 40/5/2. +pulses. IS 750. POX 93% 1L NC. Lungs diminished. Right lateral CT draining serosanguineous
fluid set to -20 suction. No crepitus, tidaling, or air leaks noted. +bowel sounds. BSC. RIJ cordis and Right PIV patent and intact. All surgical sites are C/D/I. will continue to monitor.
--- NOTE | 2024-11-20 08:06 | W.PN.CD ---
Today's Communication / Plan
-
routine post op care
Impression / Plan
-
I/P: 79F with MVP with mitral regurgitation, paroxysmal atrial fibrillation, hypertension, and dyslipidemia s/p Right mini thoracotomy/Radical mitral valve repair (triangular section of the lateral segment of the P2 scallop and primary
reapproximation of P2 onto P1, 32 mm band annuloplasty)/Surgical cryo maze of the left atrium/Left atrial appendage exclusion using a 35 mm clip, by Dr. Phan, 11/18/24.
Primary yard general car supervisor: Dr. Jeffrey Villalobos
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 Phan 11/18/2024
- Extubated, off drips
- EKG with sinus and LAFB
- Postoperative management per CT surgery
- Temp epicardial wires in place.
- Chest tubes as per CTS, out today
- can likely remove cordis
- Metoprolol started.
Paroxysmal atrial fibrillation
- Follow telemetry
- s/p Cryo Maze and RUDI clipped.
- Oral Anticoagulation: Apixaban 5 mg twice daily on hold, last dose 11/15/2024, resumption per CTS likely POD3
- [id number]: Score at least 4 (HTN, age 75 or more, female gender)
- cont. metop/amio
Tricuspid regurgitation, moderate
Hypertension, chronic and stable follow postoperative
Dyslipidemia, on rosuvastatin 40 mg
Prediabetes, HgbA1c 5.7%
CXR: bibasilar atelectasis
tele: sinus
SUBJECTIVE:
Extubated. off pressors. OOB and IS. Feels well
Physical Exam
Vital Signs/Labs
Vital Signs
Temp Pulse Resp BP Pulse Ox
36.9 C 65 15 109/50 94
11/20/24 03:51 11/20/24 04:00 11/20/24 00:00 11/20/24 03:53 11/20/24 05:57
11/19/24 11/20/24 11/21/24
06:59 06:59 06:59
Actual Weight 73 kg 73.1 kg
11/20/24 03:47
11/20/24 03:47
PT 16.9 Sec (11.4-14.6) H 11/18/24 11:48
INR 1.35 11/18/24 11:48
APTT 28.0 Sec (23.4-35.0) 11/18/24 11:48
Magnesium 2.1 mg/dl (1.6-2.3) 11/20/24 03:47
Physical Exam
Constitutional: Comfortable
Cardiovascular: Rhythm & rate is regular
Respiratory: Respiratory effort normal
Neuro/Psych: AO x 3
Data Reviewed
-
Date of Service: November 20, 2024
Medical Decision Making: Reviewed Test Results
EKG: Tracing Personally Visualized and interpreted
Labs: Labs Reviewed by me
[2024-11-20] MEDS: LIDOCAINE 4% PATCH 1 PATCH TOPICAL (08:55)
[2024-11-20] MEDS: PACERONE 200 MG PO ×3 (08:56→21:37)
[2024-11-20] MEDS: NEURONTIN 100 MG PO ×3 (08:56→21:36)
[2024-11-20] MEDS: TOPROL XL 25 MG PO (08:56)
[2024-11-20] MEDS: MAGNESIUM OXIDE 400 MG PO ×2 (08:56→20:15)
[2024-11-20] MEDS: THERAGRAN 1 TABLET PO (08:56)
[2024-11-20] MEDS: LOW STRENGTH ASPIRIN 81 MG PO (08:56)
[2024-11-20] MEDS: PROTONIX 40 MG PO (08:56)
[2024-11-20] MEDS: BACTROBAN 2% OINTMENT 1 APPLIC NASAL ×2 (08:56→20:23)
[2024-11-20] MEDS: SENOKOT PO (08:57)
[2024-11-20] MEDS: LASIX 40 MG IV (09:14)
--- NOTE | 2024-11-20 12:00 | PTCARENOTE ---
d/c ches ttube with SKIP MINER BLASTING at bedside without incident. will continue ot monitor.
[2024-11-20] MEDS: NSS 500 IV (15:25)
[2024-11-20] MEDS: FERRLECIT 110 MG IV (15:26)
--- NOTE | 2024-11-20 15:45 | PTCARENOTE ---
attempted to wean to RA. dropped to 88%. 1 L nc replaced.
[2024-11-20] MEDS: CRESTOR 40 MG PO (18:41)
--- NOTE | 2024-11-20 19:15 | PTCARENOTE ---
Patient received from RN @ 1900. Patient sitting in chair w/ call eugene in reach. AOx3. SR on monitor. BP 105/55 HR 74. Heart sounds audible. V-wires set to 40/5/2. Radial and pedal pulses present. Bilateral trace ankle edema noted. IS 1000.
POX 92% 1L NC. Lungs diminished in bases bilaterally. Hypoactive bowel sounds and good appetite. Voiding clear yellow urine. RIJ cordis and Right PIV patent and intact. All surgical sites are C/D/I. See worklist for more details.
[2024-11-20] MEDS: SENOKOT 8.6 MG PO (20:15)
[2024-11-20] MEDS: REMOVE LIDOCAINE PATCH 1 PATCH REMOVE (20:16)
[2024-11-20] MEDS: TOPROL XL PO (21:01)
[2024-11-21] VITALS (14 sets, daily range): BP systolic 91–125; BP diastolic 48–77; PULSE 95; O2SAT 95; BMI 27.3
--- NOTE | 2024-11-21 00:07 | PTCARENOTE ---
Patient reassessed. SR on monitor BP 108/67 HR 69 POX 90% 1L NC. Patient ambulated to bedside commode.
--- NOTE | 2024-11-21 04:37 | PTCARENOTE ---
Patient reassessed. SR on monitor. VSS. Labs obtained.
[2024-11-21 04:44] LABS: Hematocrit 29.1 % (37.0-47.0); Hemoglobin 9.5 g/dL (12.0-16.0); Mean Corp Hgb Conc. 32.6 g/dL (33.0-37.0); Mean Corpuscular Volume 87.7 fL (81.0-99.0); Platelet Count 117 10^3/uL (130-400); Red Cell Dist. Width 13.8 % (11.5-14.5)
[2024-11-21 05:41] LABS: Blood Urea Nitrogen 20 mg/dl (7-17); Calcium 8.2 mg/dl (8.4-10.2); Carbon Dioxide 33 mmol/L (22-30); Chloride 104 mmol/L (98-107); Estimated Creatinine Clearance 55 ml/min; Glucose 105 mg/dl (70-99); Magnesium 1.9 mg/dl (1.6-2.3); Potassium 4.0 mmol/L (3.5-5.1); Sodium 138 mmol/L (135-145); eGFR > 60.00
[2024-11-21] MEDS: SYNTHROID 100 MCG PO (06:56)
[2024-11-21] MEDS: TYLENOL 975 MG PO ×3 (06:57→21:09)
--- NOTE | 2024-11-21 07:42 | W.PN.CT ---
Today's Communication / Plan
-
-pod #3
-no issues overnight
-diuresed with 40 iv Lasix on 11/20 - UO 1450/3225 in 12/24 hrs
-Echo today
-current meds (ASA, Crestor, Toprol XL bid, Amio, Protonix, Mg). Plans to resume DOAC POD 3.
-encourage IS, OOB, ambulate
Assessment / Plan
-
Assessment:
-S/P Right mini thoracotomy/Radical mitral valve repair (triangular section of the lateral segment of the P2 scallop and primary reapproximation of P2 onto P1, 32 mm band annuloplasty)/Surgical cryo maze of the left atrium/Left atrial appendage
exclusion using a 35 mm clip, by Dr. Phan, 11/18/24, pod #3
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
-Severe mitral valve insufficiency, symptomatic
-Moderate tricuspid valve insufficiency, functional
-Paroxysmal atrial fibrillation on chronic anticoagulation
-S/P DCCV @ [facility] 2 months ago
-LVEF 60-65% preop, 55-60% postop per intraop CYNTHIA
-Hypothyroidism
-Hyperlipidemia
-Prediabetes (hgb A1C 5.7)
-HPV
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
-Former tobacco use (quit 10yrs ago)
-Anxiety
-Acute postop blood loss/Anemia (stable without blood transfusion)
-Acute postop thrombocytopenia (stable without active bleed)
-Acute postop atelectasis
-Acute postop hypoxemia
-Acute postop respiratory acidosis
-Acute postop hypokalemia
-Acute postop hypovolemia with subsequent hypervolemia
Discussed patient care with: Nursing and Care Team
Subjective
Procedure
S/P Right mini thoracotomy/Radical mitral valve repair (triangular section of the lateral segment of the P2 scallop and primary reapproximation of P2 onto P1, 32 mm band annuloplasty)/Surgical cryo maze of the left atrium/Left atrial appendage
exclusion using a 35 mm clip, by Dr. Phan, 11/18/24
-
Date of Service: November 21, 2024
Objective Data
-
Lab Results
11/21/24 04:31
11/21/24 04:31
PT 16.9 Sec (11.4-14.6) H 11/18/24 11:48
INR 1.35 11/18/24 11:48
APTT 28.0 Sec (23.4-35.0) 11/18/24 11:48
Vital Signs
Vital Signs
Temp Pulse Resp BP Pulse Ox
98 F 76 15 125/63 93
11/21/24 04:00 11/21/24 07:00 11/21/24 04:00 11/21/24 04:33 11/21/24 04:33
CT Intake/Output/Weight
11/20/24 11/21/24 11/21/24
18:59 06:59 18:59
Intake Total 170 / 190 20 / 190
Output Total 1845 / 3295 1450 / 3295
Balance -1675 / -3105 -1430 / -3105
SaO2: 93
Physical Exam
-
General: Awake and AOx3
Cardiovascular: Regular rate & rhythm, No Murmurs and No Rub
Respiratory: Decreased Breath Sounds
Sternum: Stable
Incision: Clean, Dry and Intact
Extremities: Other (trace edema, L>R. 1+ DPs b/l)
Abdomen: soft, nontender, nondistended, + bowels sounds
Data Reviewed
-
Lab Results: Results Reviewed
Medications: Active Meds Reviewed
Chest X-Ray: Report Reviewed and Image Reviewed
ECG: Report Reviewed and Image Reviewed
--- NOTE | 2024-11-21 08:00 | PTCARENOTE ---
pt received from previous RN, oriented, OOB in chair. SR on the monitor, HR 70-80s. V wire set to VVI 40/5. SBP 100-120s. palpable pulses. pt on 1LNC, 93% POX. diminished. DENTAL CHAIR ASSEMBLER cough. IS encouraged, acapella encouraged. pt abdomen s/n, denies n/v.
diet tolerated. pt states had small BM overnight. voids. ambulates in room. surgical incisions intact. chest tube site c/d/i. RIJ Cordis maintained. PIV. see worklist for VS, I&O, and assessment.
[2024-11-21] MEDS: TOPROL XL PO (08:28)
[2024-11-21] MEDS: NEURONTIN 100 MG PO ×2 (08:46→15:28)
[2024-11-21] MEDS: PROTONIX 40 MG PO (08:46)
[2024-11-21] MEDS: SENOKOT 8.6 MG PO (08:46)
[2024-11-21] MEDS: LOW STRENGTH ASPIRIN 81 MG PO (08:47)
[2024-11-21] MEDS: ELIQUIS 5 MG PO ×2 (08:47→21:07)
[2024-11-21] MEDS: PACERONE 200 MG PO ×3 (08:47→21:48)
[2024-11-21] MEDS: THERAGRAN 1 TABLET PO (08:47)
[2024-11-21] MEDS: LIDOCAINE 4% PATCH TOPICAL (08:47)
[2024-11-21] MEDS: MAGNESIUM OXIDE 400 MG PO ×2 (08:47→21:07)
[2024-11-21] MEDS: KCL 40 MEQ PO (08:47)
--- NOTE | 2024-11-21 08:47 | W.PN.CD ---
Today's Communication / Plan
-
eliquis resumed
OK to stop ASA from cardiology perspective
TTE today
Impression / Plan
-
I/P: 79F with MVP with mitral regurgitation, paroxysmal atrial fibrillation, hypertension, and dyslipidemia s/p Right mini thoracotomy/Radical mitral valve repair (triangular section of the lateral segment of the P2 scallop and primary
reapproximation of P2 onto P1, 32 mm band annuloplasty)/Surgical cryo maze of the left atrium/Left atrial appendage exclusion using a 35 mm clip, by Dr. Phan, 11/18/24.
Primary associate product integrity engineer: Dr. Jeffrey Villalobos
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 Phan 11/18/2024
- EKG and tele with sinus and LAFB
- CYNTHIA: EF 55-60%
-TTE today
Paroxysmal atrial fibrillation
- Follow telemetry: no arrhythmia
- s/p Cryo Maze and RUDI clipped.
- Oral Anticoagulation: Apixaban 5 mg twice daily resumed
- [id number]: Score at least 4 (HTN, age 75 or more, female gender)
- cont. metop/amio
Tricuspid regurgitation, moderate
Hypertension, chronic and stable follow postoperative
Dyslipidemia, on rosuvastatin 40 mg
Prediabetes, HgbA1c 5.7%
CXR: bibasilar atelectasis
tele: sinus
Physical Exam
Vital Signs/Labs
Vital Signs
Temp Pulse Resp BP Pulse Ox
98 F 86 15 125/63 96
11/21/24 04:00 11/21/24 08:37 11/21/24 04:00 11/21/24 04:33 11/21/24 08:37
11/20/24 11/21/24 11/22/24
06:59 06:59 06:59
Actual Weight 73.1 kg 72.1 kg
11/21/24 04:31
11/21/24 04:31
PT 16.9 Sec (11.4-14.6) H 11/18/24 11:48
INR 1.35 11/18/24 11:48
APTT 28.0 Sec (23.4-35.0) 11/18/24 11:48
Magnesium 1.9 mg/dl (1.6-2.3) 11/21/24 04:31
Physical Exam
Constitutional: No acute distress and Comfortable
EENT: Moist mucous membranes
Cardiovascular: Rhythm & rate is regular, Pedal edema is absent, JVD pressure is normal and Systolic murmur absent
Respiratory: Respiratory effort normal and Lungs clear to auscul.
Neuro/Psych: AO x 3
Data Reviewed
-
Date of Service: November 21, 2024
EKG: Other (Tele: SR 70s)
Labs: Labs Reviewed by me
[2024-11-21] MEDS: LASIX 40 MG IV (08:48)
[2024-11-21] MEDS: BACTROBAN 2% OINTMENT 1 APPLIC NASAL ×2 (08:50→21:08)
--- NOTE | 2024-11-21 09:01 | W.DCSUMMARY ---
Discharge Summary
Discharge Data
Date of Admission: 11/18/24
Date of Discharge: 11/21/24
Discharge Plan
-
Patient Disposition: Home (Routine Discharge)
Discharge Diagnosis/Procedures: MVrepair
Condition: Good
Diet: Low Cholesterol and 2 Gram Sodium
Activity: No strenuous activity
Driving Restrictions: No driving for 2 weeks
Bathing Restrictions: OK to Shower
Other Services: Cardiac Rehab
Specialty Instructions: Weigh Daily- Call MD for wt gain/loss 3 lbs overnight/5 lbs in 1 week
Activity Restrictions/Additional Instructions:
Please call to make appointmetns for Phase II Cardiac Rehab:
1) Ilda Wall (15 min from home)
[address] [facility]
[phone]
2) Howard Kingsley (15 min from home)
[address] [facility]
[phone]
3) [facility] (close to [facility])
[address] [place] [address]
[phone],
Referrals:
CT Transitional Care Nurse [Outside]
Referral Note:
The Cardiothoracic Transitional Care Nurse will call you to set up a visit in 1-2 days.
Helena Estrada MD [Active, Pulmonary Medicine] - in six weeks
Mary Spring CRNP [Specified Professional Personl, Cardiology] - 12/31/24 11:40 am
Referral Note: Your appt with Dr Villalobos on 12/22 at 1140 was CANCELLED
Lonnie Phan MD [Active, Cardiac Surgery] - 12/22/24 2:00 pm
Radha Turcios CRNP [Family Provider]
Prescriptions:
New
acetaminophen 325 mg Tablet
650 mg PO Q4HPRN PRN (Reason: mild pain,headache,temp >101F ) Qty: 0 0RF
furosemide [Lasix] 40 mg tablet
40 mg PO DAILY Qty: 5 0RF
Continued
multivitamin Tablet
1 tab PO DAILY
atenolol 25 mg Tablet
25 mg PO DAILY
levothyroxine 100 mcg Tablet
100 mcg PO DAILY
rosuvastatin 40 mg Tablet
40 mg PO QPM
calcium citrate-vitamin D3 [Citracal + D Maximum] 315 mg-6.25 mcg (250 unit) Tablet
2 tab PO DAILY
Eliquis 5 mg Tablet
5 mg PO BID
Care Plan Goals
Care Plan Goals:
Problem: Readiness for enhanced knowledge related to diagnosis and treatment plan
Goal: Understand your diagnosis and treatment plan needs, including medications if applicable.
Instructions: Know your diagnosis, underlying causes and treatment plan options, including medications if applicable. Consult with your health care team to learn about your diagnosis and treatment plan, including medications if applicable.
Discharge Date and Time
Print Language: SPANISH
--- NOTE | 2024-11-21 11:26 | PTCARENOTE ---
pt VSS, no changes in assessment. pt ambulated in hallway w/ CR. POX on RA 87-88%, placed on 1-2LNC. ECHO completed. V wire insulated. pt placed back to bed, BILLIE mckeon. HEAVY LINE TECHNICIAN Seda cut L groin stitch. puncture site ecchymotic, PROCESS MANAGER.
[2024-11-21] MEDS: FERRLECIT IV (15:19)
[2024-11-21] MEDS: FEOSOL 325 MG PO (15:28)
--- NOTE | 2024-11-21 16:12 | PTCARENOTE ---
pt VSS, no changes in assessment. pt ambulates in hallway w/ stand by assist. POX on RA, 89-90%. IS encouraged.
--- NOTE | 2024-11-21 16:59 | CM ---
spoke to pt and daughter in room, plan is for dc to her daughters home in [place] tomorrow. they are agreeable to a f/u visit from the ct transitional care nurse after dc.
[2024-11-21] MEDS: CRESTOR 40 MG PO (17:42)
--- NOTE | 2024-11-21 18:20 | PTCARENOTE ---
attempted ambulating patient on RA, dropped to 84% POX. no c/o SOB. pt placed on 1LNC, sat improved to 94% POX. ANIMATED CARTOONS PAINTER aware. RT at bedside to give breathing tx. IS and acapella encouraged.
--- NOTE | 2024-11-21 21:00 | PTCARENOTE ---
Patient received resting in bed. Patient ambulates to bathroom by self. Patient A+A+Ox3. No neurological deficits noted. No c/o headache, dizziness or lightheadedness. O2 at 1L via NC. SpO2 93%. No c/o SOB. No adventitious breath sounds
noted. Patient to be tested on room air - Sitting and walking. On 2L O2 - Walking. Patient requested to do it in AM. Discussed with PA for CT Surgery - Ok to test in AM. Sinus Rhythm. Heart rate 80's. Blood pressure 119/70 (84). V-Wire
40/5/2.0 Patient with no c/o chest pain, pressure or discomfort. Normoactive bowel sounds. Voiding without difficulty. Positive, palpable pulses. Trace ankle edema. Chest tube dressing intact. Right lateral chest incision/puncture sites
intact. Right and left groin puncture sites intact - Ecchymotic. Patient with no c/o back or flank pain. Assessment as documented.
[2024-11-21] MEDS: REMOVE LIDOCAINE PATCH REMOVE (21:03)
[2024-11-21] MEDS: SENOKOT PO (21:03)
[2024-11-21] MEDS: TENORMIN 25 MG PO (21:08)
[2024-11-21] MEDS: NEURONTIN PO (21:48)
[2024-11-22] VITALS (7 sets, daily range): BP systolic 109–136; BP diastolic 56–75; PULSE 69; O2SAT 87–94; BMI 27.1
--- NOTE | 2024-11-22 | PTCARENOTE ---
Patient sleeping without difficulty. Assessment as documented.
[2024-11-22] MEDS: SYNTHROID 100 MCG PO (05:44)
[2024-11-22] MEDS: TYLENOL 975 MG PO (05:44)
[2024-11-22 05:56] LABS: Hematocrit 31.8 % (37.0-47.0); Hemoglobin 10.5 g/dL (12.0-16.0); Mean Corp Hgb Conc. 33.0 g/dL (33.0-37.0); Mean Corpuscular Volume 88.6 fL (81.0-99.0); Platelet Count 154 10^3/uL (130-400); Red Cell Dist. Width 13.6 % (11.5-14.5)
[2024-11-22 06:09] LABS: Blood Urea Nitrogen 16 mg/dl (7-17); Calcium 8.6 mg/dl (8.4-10.2); Carbon Dioxide 35 mmol/L (22-30); Chloride 100 mmol/L (98-107); Estimated Creatinine Clearance 54 ml/min; Glucose 120 mg/dl (70-99); Magnesium 2.0 mg/dl (1.6-2.3); Potassium 4.3 mmol/L (3.5-5.1); Sodium 136 mmol/L (135-145); eGFR > 60.00
--- NOTE | 2024-11-22 06:30 | PTCARENOTE ---
Patient resting in bed. Patient A+A+Ox3. No neurological deficits noted. Ambulating in room and to bathroom by self. No c/o headache, dizziness or lightheadedness. AM lab work collected and sent. Oxygen levels tested - SpO2 Room Air Sitting
90%. SpO2 Room Air Walking 87%. O2 2L Walking 96%. Patient now OOB in chair. Standing scale weight 71.5 kg. Assessment/Interventions as documented.
--- NOTE | 2024-11-22 06:56 | W.PN.CT ---
Today's Communication / Plan
-
-pod #4
-no issues overnight, no complaints, would like to go home
-will need home O2 (pOx on room air was 90% sitting and 87% walking. pOx on 2 L walking was 96%). Appreciate CM help
-diuresed with Lasix, wt is close to baseline
-labs are stable
-Eliquis re-started 11/21
-current meds (ASA, Crestor, Eliquis, Toprol XL bid, Amio, Protonix, Mg).
-encourage IS, OOB, ambulate
-follow 2v-CXR
-d/c home
Assessment / Plan
-
Assessment:
-S/P Right mini thoracotomy/Radical mitral valve repair (triangular section of the lateral segment of the P2 scallop and primary reapproximation of P2 onto P1, 32 mm band annuloplasty)/Surgical cryo maze of the left atrium/Left atrial appendage
exclusion using a 35 mm clip, by Dr. Phan, 11/18/24, pod #4
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
-Severe mitral valve insufficiency, symptomatic
-Moderate tricuspid valve insufficiency, functional
-Paroxysmal atrial fibrillation on chronic anticoagulation
-S/P DCCV @ 2 months ago
-LVEF 60-65% preop, 55-60% postop per intraop CYNTHIA
-Hypothyroidism
-Hyperlipidemia
-Prediabetes (hgb A1C 5.7)
-HPV
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
-Former tobacco use (quit 10yrs ago)
-Anxiety
-Acute postop blood loss/Anemia (stable without blood transfusion)
-Acute postop thrombocytopenia (stable without active bleed)
-Acute postop atelectasis
-Acute postop hypoxemia
-Acute postop respiratory acidosis
-Acute postop hypokalemia
-Acute postop hypovolemia with subsequent hypervolemia
Discussed patient care with: Nursing and Care Team
Subjective
Procedure
S/P Right mini thoracotomy/Radical mitral valve repair (triangular section of the lateral segment of the P2 scallop and primary reapproximation of P2 onto P1, 32 mm band annuloplasty)/Surgical cryo maze of the left atrium/Left atrial appendage
exclusion using a 35 mm clip, by Dr. Phan, 11/18/24
-
Date of Service: November 22, 2024
Objective Data
-
Lab Results
11/22/24 05:31
11/22/24 05:31
PT 16.9 Sec (11.4-14.6) H 11/18/24 11:48
INR 1.35 11/18/24 11:48
APTT 28.0 Sec (23.4-35.0) 11/18/24 11:48
Vital Signs
Vital Signs
Temp Pulse Resp BP Pulse Ox
98.6 F 68 18 129/75 95
11/22/24 05:15 11/22/24 05:16 11/22/24 05:15 11/22/24 05:16 11/22/24 05:16
CT Intake/Output/Weight
11/21/24 11/21/24 11/22/24
06:59 18:59 06:59
Intake Total 20 / 190 970 / 1210 240 / 1210
Output Total 1450 / 3295 1650 / 2950 1300 / 2950
Balance -1430 / -3105 -680 / -1740 -1060 / -1740
SaO2: 95
Physical Exam
-
General: Awake and AOx3
Cardiovascular: Regular rate & rhythm, No Murmurs and No Rub
Respiratory: Decreased Breath Sounds
Sternum: Stable
Incision: Clean, Dry and Intact
Extremities: Other (trace edema b/l, 2+ DPs b/l)
--- NOTE | 2024-11-22 07:30 | PTCARENOTE ---
Assumed care of patient from maintenance technician 2nd shift RN, AAO x 3, very pleasant. Sitting up in chair. SR on monitor. Epicardial wire insulated. 1 L NC 96%, trialed on room air 92-93%, denies SOB. Using IS independently. Will obtain ambulating pulse ox .
and discuss with case management. Abdomen soft and non tender. Voiding independently. Pulses palpable. Trace edema appreciated.
[2024-11-22] MEDS: THERAGRAN 1 TABLET PO (08:32)
[2024-11-22] MEDS: BACTROBAN 2% OINTMENT 1 APPLIC NASAL (08:32)
[2024-11-22] MEDS: LOW STRENGTH ASPIRIN 81 MG PO (08:32)
[2024-11-22] MEDS: FEOSOL 325 MG PO (08:32)
[2024-11-22] MEDS: MAGNESIUM OXIDE 400 MG PO (08:32)
[2024-11-22] MEDS: NEURONTIN 100 MG PO (08:32)
[2024-11-22] MEDS: ELIQUIS 5 MG PO (08:32)
[2024-11-22] MEDS: PROTONIX 40 MG PO (08:32)
[2024-11-22] MEDS: SENOKOT 8.6 MG PO (08:32)
[2024-11-22] MEDS: PACERONE 200 MG PO (08:32)
--- NOTE | 2024-11-22 09:58 | PTCARENOTE ---
Pt on room air 93-95%, Pulse ox on ambulation 87-88%, pulse ox once resting back on room air 94%.
--- NOTE | 2024-11-22 10:17 | PTCARENOTE ---
Pt on room air 93%, Pulse ox on ambulation 87%, Ambulated on 2 L pulse ox 96%, pulse ox once resting back on room air 94%.
--- NOTE | 2024-11-22 10:55 | CM ---
called from RN, pt needs home o2-2L for ambul. (RA ambul 87%) can be dc'ed and o2 tank can be delivered to home. referral faxed to [facility]. called in and spoke to rep from [facility]. they will call pt to deliver o2 to home.
--- NOTE | 2024-11-22 11:20 | W.PN.UPDATE ---
Update Note
Progress Note Update
Home Oxygen Evaluation
will need home O2 (pOx on room air was 90% sitting and 87% walking. pOx on 2 L walking was 96%).
2 L O2 via NC will be ordered for home use
--- NOTE | 2024-11-22 11:46 | W.DCSUMMARY ---
Documented by User: Dandre Alcazar PA-C 11/22/24 11:54
Discharge Summary
Discharge Data
Date of Admission: 11/18/24
Date of Discharge: 11/22/24
-
Pending Results: No
Hospital Course
Primary care physician: Radha Turcios
Outpatient record label intern: Dr. Villalobos
Inpatient consultants: Cardiology
Procedures:
Heart port mitral valve repair, left atrial maze, left atrial appendage clip, Dr. Phan
Primary Diagnosis:
Mitral valve insufficiency
Secondary Diagnoses:
-Severe mitral valve insufficiency, symptomatic
-Moderate tricuspid valve insufficiency, functional
-Paroxysmal atrial fibrillation on chronic anticoagulation
-Hypothyroidism
-Hyperlipidemia
-Prediabetes (hgb A1C 5.7)
-HPV
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
-Former tobacco use (quit 10yrs ago)
-Anxiety
-Acute postop blood loss/Anemia (stable without blood transfusion)
-Acute postop thrombocytopenia (stable without active bleed)
-Acute postop atelectasis
-Acute postop hypoxemia
-Acute postop respiratory acidosis
-Acute postop hypokalemia
-Acute postop hypovolemia with subsequent hypervolemia
HPI: Patient was evaluated in the outpatient setting for surgical intervention for mitral insufficiency as well as chronic atrial fibrillation. After appropriate workup she was deemed a surgical candidate by Dr. Phan and subsequently electively
admitted for surgery.
Hospital course: Patient underwent mitral valve repair and maze by Dr. Phan on 11/19/2019. Please refer to separately dictated operative report for complete details. Postoperatively patient was transferred to the ICU on Levophed and insulin
infusions. Patient was extubated on postoperative day 0.
Postoperative day #1: Chest tube was maintained. She was gently diuresed with IV Lasix. Beta-blockers and amiodarone were instituted for heart rate control.
Postoperative day #2: Chest tube was removed. She was again gently diuresed.
Postoperative day #3: She was again gently diuresed. Beta-blockers were adjusted. It was noted that with ambulation her oxygen levels dropped into the low 80s. She was evaluated for home oxygen.
Postoperative day #4: Patient discharged to home with home oxygen. This will likely not be needed long-term.
Home medication changes: She will be discharged on a short course of oral Lasix as well as as needed Tylenol.
Discharge Plan
-
Patient Disposition: Home (Routine Discharge)
Discharge Diagnosis/Procedures: Right mini thoracotomy/Radical mitral valve repair (triangular section of the lateral segment of the P2 scallop and primary reapproximation of P2 onto P1, 32 mm band annuloplasty)/Surgical cryo maze of the left
atrium/Left atrial appendage exclusion using a 35 mm clip, by Dr. Phan, 11/18/24
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
-Severe mitral valve insufficiency, symptomatic
-Moderate tricuspid valve insufficiency, functional
-Paroxysmal atrial fibrillation on chronic anticoagulation
-S/P DCCV @ [facility] 2 months ago
-Hypothyroidism
-Hyperlipidemia
-Prediabetes (hgb A1C 5.7)
-HPV
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
-Former tobacco use (quit 10yrs ago)
-Anxiety
-Acute postop blood loss/Anemia (stable without blood transfusion)
-Acute postop thrombocytopenia (stable without active bleed)
-Acute postop atelectasis
-Acute postop hypoxemia
-Acute postop respiratory acidosis
-Acute postop hypokalemia
-Acute postop hypovolemia with subsequent hypervolemia
Condition: Good
Diet: Low Cholesterol and 2 Gram Sodium
Activity: No strenuous activity
Driving Restrictions: No driving for 2 weeks
Bathing Restrictions: OK to Shower
Other Services: Cardiac Rehab
Specialty Instructions: Weigh Daily- Call MD for wt gain/loss 3 lbs overnight/5 lbs in 1 week
Activity Restrictions/Additional Instructions:
Please call to make appointmetns for Phase II Cardiac Rehab:
1) Ilda Wall (15 min from home)
[address] [facility]
[phone]
2) Howard Kingsley (15 min from home)
[address] [facility]
[phone]
3) [facility] ([place] to [place])
[address] [facility]
[phone],
Referrals:
CT Transitional Care Nurse [Outside]
Referral Note:
The Cardiothoracic Transitional Care Nurse will call you to set up a visit in 1-2 days. They will see you at your daughters home: [address] [facility]
Helena Estrada MD [Active, Pulmonary Medicine] - in six weeks
Mary Spring CRNP [Specified Professional Personl, Cardiology] - 12/31/24 11:40 am
Referral Note: Your appt with Dr Villalobos on 12/22 at 1140 was CANCELLED
Lonnie Phan MD [Active, Cardiac Surgery] - 12/22/24 2:00 pm
Radha Turcios CRNP [Family Provider]
Prescriptions:
New
acetaminophen 325 mg Tablet
650 mg PO Q4HPRN PRN (Reason: mild pain,headache,temp >101F ) Qty: 0 0RF
furosemide [Lasix] 40 mg tablet
40 mg PO DAILY Qty: 5 0RF
potassium chloride [K-Tab] 20 mEq tablet extended release
20 meq PO DAILY 5 Days Qty: 5 0RF
Continued
multivitamin Tablet
1 tab PO DAILY
atenolol 25 mg Tablet
25 mg PO DAILY
levothyroxine 100 mcg Tablet
100 mcg PO DAILY
rosuvastatin 40 mg Tablet
40 mg PO QPM
calcium citrate-vitamin D3 [Citracal + D Maximum] 315 mg-6.25 mcg (250 unit) Tablet
2 tab PO DAILY
Eliquis 5 mg Tablet
5 mg PO BID
Discharge Orders:
Discharge Patient (As Directed); Ordered 11/22/24
Ordered By: Dandre Alcazar
Care Plan Goals
Care Plan Goals:
Problem: Readiness for enhanced knowledge related to diagnosis and treatment plan
Goal: Understand your diagnosis and treatment plan needs, including medications if applicable.
Instructions: Know your diagnosis, underlying causes and treatment plan options, including medications if applicable. Consult with your health care team to learn about your diagnosis and treatment plan, including medications if applicable.
Discharge Date and Time
Discharge Date/Time: 11/22/24 13:28
Print Language: LUXEMBOURGER

Documented by User: Cassandra Reyes MD 11/23/24 09:30
Discharge Summary
Discharge Data
Date of Admission: 11/18/24
Date of Discharge: 11/23/24
Discharge Plan
-
Patient Disposition: Home (Routine Discharge)
Discharge Diagnosis/Procedures: Right mini thoracotomy/Radical mitral valve repair (triangular section of the lateral segment of the P2 scallop and primary reapproximation of P2 onto P1, 32 mm band annuloplasty)/Surgical cryo maze of the left
atrium/Left atrial appendage exclusion using a 35 mm clip, by Dr. Phan, 11/18/24
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
-Severe mitral valve insufficiency, symptomatic
-Moderate tricuspid valve insufficiency, functional
-Paroxysmal atrial fibrillation on chronic anticoagulation
-S/P DCCV @ [facility] 2 months ago
-Hypothyroidism
-Hyperlipidemia
-Prediabetes (hgb A1C 5.7)
-HPV
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
-Former tobacco use (quit 10yrs ago)
-Anxiety
-Acute postop blood loss/Anemia (stable without blood transfusion)
-Acute postop thrombocytopenia (stable without active bleed)
-Acute postop atelectasis
-Acute postop hypoxemia
-Acute postop respiratory acidosis
-Acute postop hypokalemia
-Acute postop hypovolemia with subsequent hypervolemia
Condition: Good
Diet: Low Cholesterol and 2 Gram Sodium
Activity: No strenuous activity
Driving Restrictions: No driving for 2 weeks
Bathing Restrictions: OK to Shower
Other Services: Cardiac Rehab
Specialty Instructions: Weigh Daily- Call MD for wt gain/loss 3 lbs overnight/5 lbs in 1 week
Activity Restrictions/Additional Instructions:
Please call to make appointmetns for Phase II Cardiac Rehab:
1) Ilda Wall (15 min from home)
[address] [facility]
[phone]
2) Howard Kingsley (15 min from home)
[address] [facility]
[phone]
3) [facility] (close to [facility])
[address] [facility]
[phone],
Referrals:
CT Transitional Care Nurse [Outside]
Referral Note:
The Cardiothoracic Transitional Care Nurse will call you to set up a visit in 1-2 days. They will see you at your daughters home: [address]
Helena Estrada MD [Active, Pulmonary Medicine] - in six weeks
Mary Spring CRNP [Specified Professional Personl, Cardiology] - 12/31/24 11:40 am
Referral Note: Your appt with Dr Villalobos on 12/22 at 1140 was CANCELLED
Lonnie Phan MD [Active, Cardiac Surgery] - 12/22/24 2:00 pm
Radha Turcios CRNP [Family Provider]
Prescriptions:
New
acetaminophen 325 mg Tablet
650 mg PO Q4HPRN PRN (Reason: mild pain,headache,temp >101F ) Qty: 0 0RF
furosemide [Lasix] 40 mg tablet
40 mg PO DAILY Qty: 5 0RF
potassium chloride [K-Tab] 20 mEq tablet extended release
20 meq PO DAILY 5 Days Qty: 5 0RF
Continued
multivitamin Tablet
1 tab PO DAILY
atenolol 25 mg Tablet
25 mg PO DAILY
levothyroxine 100 mcg Tablet
100 mcg PO DAILY
rosuvastatin 40 mg Tablet
40 mg PO QPM
calcium citrate-vitamin D3 [Citracal + D Maximum] 315 mg-6.25 mcg (250 unit) Tablet
2 tab PO DAILY
Eliquis 5 mg Tablet
5 mg PO BID
Discharge Orders:
Discharge Patient (As Directed); Ordered 11/22/24
Ordered By: Dandre Alcazar
Care Plan Goals
Care Plan Goals:
Problem: Readiness for enhanced knowledge related to diagnosis and treatment plan
Goal: Understand your diagnosis and treatment plan needs, including medications if applicable.
Instructions: Know your diagnosis, underlying causes and treatment plan options, including medications if applicable. Consult with your health care team to learn about your diagnosis and treatment plan, including medications if applicable.
Discharge Date and Time
Discharge Date/Time: 11/22/24 13:28
Print Language: LUXEMBOURGER
--- NOTE | 2024-11-22 13:20 | PTCARENOTE ---
Assisted patient with showering and then dressing after. INT and telemetry pack removed. Discharge instructions reviewed with patient and daughter. Questions answered and lasix order clarified. Wheeled to car by staff.
== END 2024-11-22 13:28 | disposition home health service (06) | DRG 219 ==
LOC: CVICU 05:09
PROVIDERS: Anesthesiology; Clinical Nurse Specialist Acute Care; ADMITTING PHYSICIAN Thoracic Surgery (Cardiothoracic Vascular Surgery); CONSULT PHYSICIAN Internal Medicine
PROC: 02580ZZ Destruction of Conduction Mechanism, Open Approach (ICD-10-PCS; 2024-11-18)
PROC: 02L70CK Occlusion of Left Atrial Appendage with Extraluminal Device, Open Approach (ICD-10-PCS; 2024-11-18)
PROC: 5A1221Z Performance of Cardiac Output, Continuous (ICD-10-PCS; 2024-11-18)
PROC: 02UG0JZ Supplement Mitral Valve with Synthetic Substitute, Open Approach (ICD-10-PCS; 2024-11-18)
PROC: B24BZZ4 Ultrasonography of Heart with Aorta, Transesophageal (ICD-10-PCS; 2024-11-18)
DX: I34.0 Nonrheumatic mitral (valve) insufficiency (principal); I51.1 Rupture of chordae tendineae, not elsewhere classified; I48.92 Unspecified atrial flutter; D62 Acute posthemorrhagic anemia; J98.11 Atelectasis; E87.29 Other acidosis; I48.20 Chronic atrial fibrillation, unspecified; E03.9 Hypothyroidism, unspecified; I36.1 Nonrheumatic tricuspid (valve) insufficiency; E78.5 Hyperlipidemia, unspecified; I10 Essential (primary) hypertension; I27.22 Pulmonary hypertension due to left heart disease; R73.03 Prediabetes; F41.9 Anxiety disorder, unspecified; N83.8 Other noninflammatory disorders of ovary, fallopian tube and broad ligament; D69.59 Other secondary thrombocytopenia; R09.02 Hypoxemia; E87.6 Hypokalemia; E87.70 Fluid overload, unspecified; E86.1 Hypovolemia; A63.0 Anogenital (venereal) warts; Z79.01 Long term (current) use of anticoagulants; Z79.899 Other long term (current) drug therapy; Z87.891 Personal history of nicotine dependence
CPT/HCPCS: 33259; 36415; 71045; 71046; 80048; 80053; 81003; 81015; 82248; 82330; 82565; 82805; 82810; 82947; 82962; 83036; 83735; 84132; 84302; 84520; 85014; 85018; 85025; 85027; 85049; 85610; 85730; 86850; 86900; 86901; 86920; 87070; 87086; 88305; 93005; 93308; 93312; 93320; 93321; 93325; 93880; 94002; 94640; J2916

== ENCOUNTER 2024-12-19 20:42 | Inpatient (IN) | payer OTHER, SELFPAY ==
[2024-12-19] VITALS (10 sets, daily range): BP systolic 96–167; BP diastolic 44–123; BMI 27.9; BMI 27.2
[2024-12-19 16:10] LABS: Hematocrit 37.3 % (37.0-47.0); Hemoglobin 11.8 g/dL (12.0-16.0); Mean Corp Hgb Conc. 31.6 g/dL (33.0-37.0); Mean Corpuscular Volume 87.4 fL (81.0-99.0); Nucleated Red Blood Cells % 0 %; Platelet Count 219 10^3/uL (130-400); Red Cell Dist. Width 14.6 % (11.5-14.5)
[2024-12-19 16:27] LABS: ALT (SGPT) 70 U/L (0-35); AST (SGOT) 43 U/L (14-36); Albumin 4.5 g/dl (3.5-5.0); Alkaline Phosphatase 79 U/L (38-126); Blood Urea Nitrogen 12 mg/dl (7-17); Calcium 10.3 mg/dl (8.4-10.2); Carbon Dioxide 30 mmol/L (22-30); Chloride 102 mmol/L (98-107); Glucose 115 mg/dl (70-99); Potassium 4.3 mmol/L (3.5-5.1); Sodium 139 mmol/L (135-145); Total Protein 8.0 g/dl (6.3-8.2); eGFR > 60.00
[2024-12-19 16:36] LABS: Troponin I 0.027 ng/ml
[2024-12-19] MEDS: NSS 500 IV (17:14)
[2024-12-19] MEDS: LOPRESSOR 5 MG IV (17:14)
[2024-12-19 17:23] LABS: Magnesium 2.0 mg/dl (1.6-2.3)
--- NOTE | 2024-12-19 19:49 | ED.GENMED ---
History of Present Illness
General
Chief Complaint: Heart Rate Problem
Source: patient
Time Seen by Provider: 12/19/24 16:35
Nursing documentation reviewed up to this point in time: agreed with
History of Present Illness
History of Present Illness:
Patient status post mitral valve repair with Dr. Phan on November 18, on Eliquis secondary to paroxysmal atrial fibrillation, presents to ED secondary to persistently elevated heart rate since yesterday afternoon, as noted on her Apple Watch. Of
note, patient has been experiencing cold-like symptoms for the past 3 to 4 days. Patient was seen by her primary care physician and was prescribed promethazine, which she continued yesterday afternoon, when her symptoms started. Denies chest pain
or shortness of breath. Denies dizziness. Denies nausea or vomiting. Denies chest palpitations. Denies previous history of similar symptoms. Denies loss of appetite.
Review of Systems
Review of Systems
Allergies reviewed?: Yes
All Other Systems: ROS reviewed and negative except as documented in HPI and ROS
Constitutional: Reports no symptoms; Denies fever
Respiratory: Reports no symptoms; Denies trouble breathing
Cardiac: Reports no symptoms; Denies palpitations
ABD/GI: Reports no symptoms; Denies vomiting
Musculoskeletal: Reports no symptoms
Skin: Reports no symptoms
Neurological: Reports no symptoms
Phy Exam
Physical Exam
Physical Exam:
Physical Exam
General: no apparent distress, not acutely ill. afebrile
Head: nc/at. eomi
Neck: supple. normal range of motion.
Heart: irregularly irregular. tachycardic.
Lungs: no acute respiratory distress. clear bilaterally
Abdomen: normal bowel sounds. not tender.
Neuro: alert and oriented x 3. no focal neurological deficits
Skin: no rash
Psychiatric: well kept. interactive and cooperative
Extremities: no edema. no calf tenderness.
Course
Orders/Labs/Results
Orders:
Orders
12/19/24 Breakfast
NPO
Allow oral meds: Yes
Allow clear liquids: Sips of Clears
12/19/24 15:44
EKG [Electrocardiogram (*1)] Urgent
Reason for Study: Hypertension, Benign
EKG- Treatment ONCE
12/19/24 15:58
Complete Blood Count/With Diff Urgent
Comprehensive Metabolic Panel Urgent
Magnesium Urgent
Comment: ADD ON
Troponin I Urgent
12/19/24 16:37
Add On- LAB Urgent
Tests Added?: magnesium
12/19/24 16:59
0.9% Sodium Chloride 500 ml [Nss] 500 ml IV BOLUS
Metoprolol [Lopressor] 5 mg IV NOW STA
12/19/24 19:42
Apixaban [Eliquis] 5 mg PO NOW STA
Diltiazem HCl [Cardizem] 5 mg IV NOW STA
12/19/24 19:45
Diltiazem 125 mg/125 ml Nss [Cardizem] 125 mg in 125 ml IV PER PROTOCOL
Initial dose in mg/hr, then titrate:: 5
Titrate to keep:: Heart rate 80-100 bpm
Titrate by mg/hr:: 5 mg/hr
Frequency of titrations (minutes):: 15
Maximum dose in mg/hr:: 15
12/19/24 20:16
Consult Cardiology [CARDIOLOGY CONSULT] Routine
Consulting Provider: Jose Godoy
Was physician already notified: Yes
Reason for consult: Rapid Afib
12/19/24 20:26
Admit/Transfer Patient As Directed
Co-Sign Provider:
Level of Care: Inpatient admission
Assign to:: IVU
Physician / Group: Shankar
Diagnosis: A-Fib / Flutter
Reason for Hospitalization: A-Fib / Flutter
Expected length of stay greater than two midnights?: Yes
ELOS- Estimated Length of Stay in days: 3
I certify the patient meets the requirements for IP care: Yes
PRN Pain Medication Management As Directed
May give lesser potent ordered pain med per pt: Yes
preference::
Protocol:: Medication orders for pain may be administered in a
manner that supports deferring to patient preference
when the pt is:
- Requesting an ordered lesser potent pain medication.
Least to most potent pain medications are defined
as: acetaminophen < NSAID < tramadol < opioids
(morphine, oxycodone, hydromorphone).
- Requesting a lesser dose of the same medication IF
ORDERED.
- Requesting a less intrusive route of administration
if both routes are prescribed by the provider (PO <
IV).
12/19/24 20:27
Code Status As Directed
Resuscitation Status: Full Code
12/19/24 22:17
Acetaminophen [Tylenol] 650 mg PO Q4HPRN PRN mild pain,headache,temp >101F
Diltiazem 125 mg/125 ml Nss [Cardizem] 125 mg in 125 ml IV PER PROTOCOL
Currently infusing. Continue current dose and titrate:: Yes
Titrate to keep:: Heart rate 80-100 bpm
Titrate by mg/hr:: 5 mg/hr
Frequency of titrations (minutes):: 15
Maximum dose in mg/hr:: 15
12/19/24 22:17
TSH Reflex To Free T4 Routine
Activity As Directed
Activity Level: Ambulate
With Assistance
EKG with chest pain [ECG as needed] As Directed
ECG as needed for:: Chest Pain
I/O [Intake/ Output] As Directed
Frequency: Per unit guidelines
Vital Signs As Directed
Frequency: Per unit guidelines
Weight As Directed
Frequency: Daily
Oxygen Therapy [O2 Therapy] [RESP] Routine
Titrate/Wean O2 to maintain O2 sat greater than (%): 94
12/20/24 06:00
EKG [Electrocardiogram (*1)] IN AM
Reason for Study: Chest Pain
Basic Metabolic Panel IN AM
Cardiovascular Evaluation IN AM
Complete Blood Count/No Diff IN AM
Magnesium IN AM
Levothyroxine [Synthroid] 100 mcg PO DAILY@0600
12/20/24 08:00
Apixaban [Eliquis] 5 mg PO BID
Furosemide [Lasix] 40 mg PO DAILY
Metoprolol Xl [Toprol Xl] 25 mg PO BID
Potassium Chloride [KCl] 20 meq PO DAILY
12/20/24 18:00
Rosuvastatin Calcium [Crestor] 40 mg PO QPM
Abnormal Lab Results
12/19/24
15:58
Hgb 11.8 L g/dL
(12.0-16.0)
MCHC 31.6 L g/dL
(33.0-37.0)
RDW 14.6 H %
(11.5-14.5)
Glucose 115 H mg/dl
(70-99)
Calcium 10.3 H mg/dl
(8.4-10.2)
AST 43 H U/L
(14-36)
ALT 70 H U/L
(0-35)
12/19/24 15:58
12/19/24 15:58
Vital Signs
Initial and Last Documented VS:
Initial Vital Signs
Temp Pulse Resp BP Pulse Ox
97.5 F 142 19 167/115 94
12/19/24 15:50 12/19/24 15:50 12/19/24 15:50 12/19/24 15:50 12/19/24 15:50
Last Documented Vital Signs
Temp Pulse Resp BP Pulse Ox
98.1 F 67 18 96/44 96
12/19/24 22:52 12/19/24 22:00 12/19/24 22:52 12/19/24 22:00 12/19/24 22:52
MDM/Problems Addressed
MDM/Problems Addressed:
History and exam, along with EKG consistent with rapid atrial flutter. Patient observed after administering 5 mg Lopressor IV along with home dose of atenolol. Unfortunately, patient remains mildly tachycardic with symptoms, especially with
minimal exertion. As such, decision made to start patient on Cardizem infusion. Discussed with on-call CT surgery, Dr. Adames, who requests hospitalist admission. Patient given her evening dose of Eliquis.
*Pulse Oximetry
SaO2: 95
Oxygen Mode of Delivery: Room air
Patient hypoxic: no
*EKG
Interpreted by ED Provider?: Yes
EKG Intrepretation Date: 12/19/24
Heart Rate: 142
Rate: tachycardiac
Rhythm: atrial flutter
[place]: normal axis
*Critical Care Note
Total Time (30-74mins, 75-104mins- exclusive of procedures): Not Applicable
ED Attending Note
-
Portions of this chart may have been created with voice recognition software.� Occasional wrong word or��sound alike� substitutions may have occurred due to the inherent limitations of voice recognition software.
Discharge Plan
Departure
Patient Disposition: Admit
Date of Disposition: 12/19/24
Time of Disposition: 20:08
Admit to: Telemetry
Presentation/result/management discussed w/ accepting MD/DO: Hospitalist
Discharge Problem:
Atrial flutter with rapid ventricular response
Interventions
Interventions:
*Risk Screen - Suicide Last Done: 12/19/24 15:51
*General Assessment Last Done: 12/19/24 15:51
*Neglect/Abuse Screening Last Done: 12/19/24 15:51
*ED- Fall Risk Assessment Last Done: 12/19/24 16:34
*ED COVID-19 Vaccine History Last Done: 12/19/24 15:51
*ED Influenza Vaccine History Last Done: 12/19/24 15:51
*Nursing Disposition Last Done: 12/19/24 22:26
ED- Cardiac Assessment Last Done: 12/19/24 16:34
ED- Pulmonary Assessment Last Done: 12/19/24 16:34
Discharge Date and Time
Discharge Date/Time: 12/19/24 22:27
[2024-12-19] MEDS: ELIQUIS 5 MG PO (20:13)
[2024-12-19] MEDS: CARDIZEM 125 IV (20:13)
--- NOTE | 2024-12-19 20:31 | HPS.HSE ---
Family Physician
-
Family Physician: SUKUMAR Mckinney
Chief Complaint
-
Rapid Heart Rates
History of Present Illness
Patient is an 79y F with PMH significant for paroxysmal A-Fib, hypothyroidism and myxomatous mitral valve s/p recent repair who presents to ED complaining of rapid heart rates. Patient states that for the past two days her Apple Watch and her
home BP cuff have alerted her to elevated heart rates in the 120s and 140s. She has had no symptoms of palpitations, chest pain, dyspnea, etc.
Patient underwent cardiothoracic surgery on 11/18 consisting of mitral valve repair, MAZE procedure and RUDI clip.
She reports development of hacking, non-productive cough for the past week or so. She tested negative as an outpatient for COVID-19 and influenza.
No fevers / chills. No dyspnea.
Patient was prescribed promethazine-DM by her PCP two days ago which she has been taking with limited relief of her cough. She denies any other OTC meds, etc for her cough / cold symptoms.
In the ED she is resting comfortably with no complaints.
Medical History
Past Medical History
Past Medical History: Reports Other
Additional Past Medical History:
Myxomatous Mitral Valve / Mitral valve Insufficiency
Paroxysmal Atrial Fibrillation
Hypothyroidism
HPV
Right Adnexal Lesion
Vaginal Prolapse
Past Surgical History: Reports Other
Additional Past Surgical History:
11/18: Mitral Valve Repair, MAZE Procedure, RUDI Clip
Vaginal Prolapse Repair with Mesh
Social History
Tobacco: Former Smoker (Quit smoking 15 years ago.)
Alcohol: None
Drug: None
Family History
Family History: Not pertinent
Allergies / Home Medications
Allergies reflects when Allergies were last updated in [facility].
Home Medications with original date entered in [facility]
Allergy/Medication List:
Allergies
Allergy/AdvReac Type Severity Reaction Status Date / Time
bee venom protein (honey bee) Allergy Swelling Verified 10/23/24 06:35
Home Medications
apixaban 5 mg tablet (Eliquis) 5 mg PO BID Blood Clot Prevention/Tx 10/17/24
atenolol 25 mg tablet 25 mg PO DAILY Blood Pressure 10/17/24
calcium 315 mg (as citrate)-vitamin D3 6.25 mcg (250 unit) tablet (Citracal + Vitamin D Maximum) 2 tab PO DAILY Supplement 10/17/24
levothyroxine 100 mcg tablet 100 mcg PO DAILY Thyroid 10/17/24
multivitamin 1 tab PO DAILY Supplement 10/17/24
rosuvastatin 40 mg tablet 40 mg PO QPM High Cholesterol 10/17/24
acetaminophen 325 mg tablet 650 mg (2 x 325 mg) PO Q4HPRN PRN mild pain,headache,temp >101F #0 tabs 11/21/24
furosemide 40 mg tablet (Lasix) 40 mg PO DAILY #5 tabs 11/22/24
potassium chloride 20 mEq tablet,extended release (K-Tab) 20 meq PO DAILY 5 days #5 tabs 11/22/24
Review of Systems
-
History Source: Patient
A 12 point ROS was completed and negative except as noted: Yes
Constitutional: Denies Fever or Chills
EENT: Denies Sore Throat
Respiratory: Reports Cough; Denies Trouble Breathing
Cardiac: Denies Chest Pain or Palpitations
Abdomen/GI: Denies Abdominal Pain, Nausea, Vomiting or Diarrhea
: Denies Dysuria, Frequency or Flank Pain
Musculoskeletal: Denies Joint Pain or Edema
Neurological: Denies Dizzy or Headache
Psych: Reports Anxiety; Denies Depression
Physical Exam
Vital Signs
Vital Signs
Temp Pulse Resp BP Pulse Ox
97.5 F 116 21 133/102 95
12/19/24 15:50 12/19/24 19:02 12/19/24 19:02 12/19/24 19:02 12/19/24 19:53
Physical Exam
General: Other (79y F in no acute distress.)
HEENT: Moist mucous membranes and PERRLA
Respiratory: Other (Decreased at bases - otherwise clear.)
Cardiac: S1/S2 and Irregular Rhythm; No Murmur
GI: Soft, Non Tender, Non Distended and Normal Bowel Sounds
Musculoskeletal: No Clubbing, No Cyanosis and No Edema
Neuro: AO x 3
Laboratory Results
-
12/19/24 15:58
12/19/24 15:58
Laboratory Results
Total Bilirubin 0.7 mg/dl (0.2-1.3) 12/19/24 15:58
AST 43 U/L (14-36) H 12/19/24 15:58
ALT 70 U/L (0-35) H 12/19/24 15:58
Alkaline Phosphatase 79 U/L (38-126) 12/19/24 15:58
Troponin I 0.027 ng/ml 12/19/24 15:58
Impression/Plan
-
A/P: Patient is an 79y F with PMH significant for hypothyroidism, PA-Fib and recent mitral valve repair who presents to ED for evaluation of rapid heart rates per home monitoring device.
Paroxysmal A-Fib / Flutter with Rapid Ventricular Rates
- Admit to IVU for further evaluation and treatment.
- Continue Cardizem infusion and titrate as needed.
- Change atenolol to Toprol for now and titrate dose as needed.
- Patient is entirely asymptomatic from A-Fib / Flutter at present.
- Continue usual Eliquis for stroke risk reduction.
- Cardiology evaluation for additional recommendations.
Myxomatous Mitral Valve
s/p Mitral Valve Repair 11/18
- Stable. ? Echo - defer to Cardiology.
Hypothyroidism
- Continue usual T4 supplementation.
- Update TFTs.
Cough
- Likely URI. COVID / Flu negative as an outpatient.
- Check CXR.
- Supportive care.
DVT Prophylaxis: On Eliquis
Code Status: Full
--- NOTE | 2024-12-19 22:15 | PTCARENOTE ---
Pt admitted to room 2257 from ED, aaox3, Cardizem infusing at 5mg/hr, HR controlled at 67-7-'s. Pt remains Aflutter on tele monitor, denies feeling palpitations, cp, dizziness or lightheadedness. Pox 96% RA, lungs diminished. Afib booklet given. POC
ongoing and call eugene within reach.
[2024-12-20] VITALS (26 sets, daily range): BP systolic 87–155; BP diastolic 47–111; BMI 27.1
[2024-12-20] MEDS: SYNTHROID 100 MCG PO (05:22)
[2024-12-20 05:34] LABS: Hematocrit 35.0 % (37.0-47.0); Hemoglobin 11.3 g/dL (12.0-16.0); Mean Corp Hgb Conc. 32.3 g/dL (33.0-37.0); Mean Corpuscular Volume 88.6 fL (81.0-99.0); Platelet Count 207 10^3/uL (130-400); Red Cell Dist. Width 14.4 % (11.5-14.5)
[2024-12-20 05:50] LABS: Blood Urea Nitrogen 12 mg/dl (7-17); Calcium 9.0 mg/dl (8.4-10.2); Carbon Dioxide 27 mmol/L (22-30); Chloride 106 mmol/L (98-107); Estimated Creatinine Clearance 54 ml/min; Glucose 103 mg/dl (70-99); HDL Cholesterol 40 mg/dl; LDL Cholesterol, Calculated 36 mg/dl; Magnesium 1.9 mg/dl (1.6-2.3); Potassium 4.2 mmol/L (3.5-5.1); Sodium 140 mmol/L (135-145); Very Low Density Lipoprotein 31 mg/dl (0-30); eGFR > 60.00
[2024-12-20] MEDS: ELIQUIS 5 MG PO ×2 (08:08→21:18)
[2024-12-20] MEDS: TOPROL XL 25 MG PO ×2 (08:08→21:17)
--- NOTE | 2024-12-20 08:31 | W.PN.HOSP.TC ---
Addendum entered and electronically signed by Josh Hoyos DO 12/20/24 10:56:
Rapid response called for syncope.
According to nurse, amiodarone IV was started and in less than 1 minute patient had a vigorous cough and subsequently nearly passed out became unresponsive.
She quickly regained consciousness and amiodarone was discontinued.
Patient felt flushed and somewhat nauseous.
Suspect vasovagal response related to cough.
No evidence of amiodarone reaction.
Discussed with Dr. Godoy.
Original Note:
Today's Communication/Plan
-
Cardiology consult
resume diet
COVID antigen
Assessment / Plan
Assessment / Plan
Gen-AAOx3, NAD
HEENT-NC, AT, anicteric, clear oral mm
Neck-supple
CV-reg, no M, +S1/S2
Lungs-clear B/L
Abd-soft, NT, ND
Ext-no edema
Musculoskeletal-no cyanosis, clubbing
Skin-warm and dry
Neuro-grossly non-focal
Psych-calm, cooperative
Rapid atrial flutter -now rate controlled on IV Cardizem infusion. Toprol-XL 25 mg twice daily to start this morning, hopefully wean off Cardizem.
Continue Eliquis.
Cardiology consulted.
Okay to resume diet.
11/18/24: Underwent right minithoracotomy, radical mitral valve repair, surgical cryo maze of the left atrium, left atrial appendage exclusion using a 35mm clip.
Subacute bronchitis -has been coughing for a little over a week. COVID, influenza, RSV negative reportedly in her PCPs office on Sunday. Will recheck COVID antigen.
Admission chest x-ray shows small right basilar opacity possibly representing small effusion with adjacent atelectasis, clinically doubt pneumonia. Pulse ox normal on room air.
Paroxysmal atrial fibrillation -as above.
Severe mitral regurgitation -treated with mitral valve repair as above.
Hypothyroidism -continue levothyroxine. TSH 5.6, free T4 1.3.
Hyperlipidemia -rosuvastatin.
Normocytic anemia -appears to be chronic. Hemoglobin stable. Monitor for now.
Full code
Anticipated Discharge: > 48 hours
Subjective/Interval History
-
Date of Service: December 20, 2024
Patient seen and examined. Complaining of cough. Denies shortness of breath.
Objective Data
-
Labs:
Laboratory Results
12/20/24
05:11
WBC 5.2
Hgb 11.3 L
Hct 35.0 L
Plt Count 207
Sodium 140
Potassium 4.2
Chloride 106
Carbon Dioxide 27
BUN 12
Creatinine 0.8
Glucose 103 H
Calcium 9.0
Vital Signs:
Vital Signs
Temp Pulse Resp BP Pulse Ox
97.7 F 90 18 119/99 94
12/20/24 07:39 12/20/24 08:08 12/20/24 07:39 12/20/24 08:08 12/20/24 07:39
I&O
12/19/24 12/20/24 12/21/24
06:59 06:59 06:59
Intake Total 300 / 300
Balance 300 / 300
Review of Systems
-
History Source: Patient
All other systems: Reviewed and negative
--- NOTE | 2024-12-20 08:48 | CON.CAR ---
Addendum entered and electronically signed by Jose Godoy MD 12/20/24 10:20:
I saw and examined the patient independently and performed majority of MDM.
The [employer] OFFICER's note was reviewed and I agree with the note, with changes/additions below.
Comment: 79 yo female with paroxysmal A fib on eliquis, MV repair, MAZE, RUDI exclusion 11/18/24, admitted with atrial flutter (type unknown) with RVR. Her watch alerted her to tachycardia. She did not feel palps. Exam with irregular rhythm, no
murmurs, no edema. Tele: A flutter 60s (on IV diltiazem).
Will use IV amiodarone for rhythm control. If remains in A flutter tomorrow, will discuss DCCV for Sunday.
Chronic anticoagulation. No missed doses of eliquis.
Original Note:
Consultation
Consultation Request
Date/Time Consultation Requested: 12/19/242015
Date/Time Consultation Performed: 12/20/24 0900
Requesting Provider: Saeed Hines
Performing Provider: Marly PATINO for Dr. Godoy
Reason for Consultation: atrial flutter with rapid rates
Medical History
-
Chief Complaint: tachycardia
History of Present Illness:
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
segment of the P2 scallop and primary reapproximation of P2 onto P1, 32 mm band annuloplasty)/surgical cryo maze of the left atrium/left atrial appendage exclusion with Dr. Phan on 11/18/24. She was discharged on 11/22/24. She developed a cough over
the past week and was placed on promethazine/dextromethorphan. She is back with reports of tachycardia noted on her apple watch. She did not feel it. In ER, seen to have atrial flutter with rapid rates. She was placed on IV diltiazem and rates are
well-controlled with this.
Past Medical History
Past Medical History: Arrhythmias, HTN, Hypercholesterolemia and Valvular Disease
Social History
Living: With Family
Family History
Family History: Reviewed & Not Pertinent
Allergies / Home Medications
Allergy/AdvReac Type Severity Reaction Status Date / Time
bee venom protein (honey bee) Allergy Swelling Verified 10/23/24 06:35
�Medication �Instructions �Recorded �Confirmed �Type
apixaban 5 mg tablet (Eliquis) 5 mg PO BID Blood Clot 10/17/24 12/19/24 History
Prevention/Tx
atenolol 25 mg tablet 25 mg PO DAILY Blood Pressure 10/17/24 12/19/24 History
calcium 315 mg (as 2 tab PO DAILY Supplement 10/17/24 12/19/24 History
citrate)-vitamin D3 6.25 mcg (250
unit) tablet (Citracal + Vitamin D
Maximum)
levothyroxine 100 mcg tablet 100 mcg PO DAILY Thyroid 10/17/24 12/19/24 History
multivitamin 1 tab PO DAILY Supplement 10/17/24 12/19/24 History
rosuvastatin 40 mg tablet 40 mg PO QPM High Cholesterol 10/17/24 12/19/24 History
acetaminophen 325 mg tablet 650 mg (2 x 325 mg) PO Q4HPRN PRN 11/21/24 12/19/24 Rx
mild pain,headache,temp >101F #0
tabs
Review of Systems
-
History Source: Patient
All other systems: Negative unless noted
Respiratory: Cough
Physical Exam
Vital Signs
Temp Pulse Resp BP Pulse Ox
97.7 F 90 18 119/99 94
12/20/24 07:39 12/20/24 08:08 12/20/24 07:39 12/20/24 08:08 12/20/24 07:39
Lab Results
12/20/24 05:11
12/20/24 05:11
Troponin I 0.027 ng/ml 12/19/24 15:58
Physical Exam
General: Well Developed, Well Nourished and No Apparent Distress
HEENT: Normocephalic and Anicteric
Respiratory: Other (coarse lung sound left base)
Cardiac: Regular Rhythm
Musculoskeletal: No Edema
Skin: Warm, Dry and Other (right breast site looks well-healing without any s/s infection)
Neuro: AO x 3
Psych: Calm
Impression / Plan
-
Atrial flutter, type unknown: asymptomatic
-fast rates on arrival, now well controlled on IV diltiazem. Atenolol was adjusted to metoprolol.
-stop diltiazem drip and start IV amiodarone- this requires intensive monitoring. She reports no missed doses of Eliquis. Continue.
-has known PAF, s/p Cryo Maze and RUDI clipped as noted
Cough:
-CXR: Right basilar opacity favored to represent a small pleural effusion with adjacent atelectasis and/or pneumonia. Mild elevation of the right hemidiaphragm. No pneumothorax. Stable cardiomediastinal silhouette. Cardiac valve prosthesis and a
left atrial appendage clip. Covid test pending. No objective fever (though reports she has felt warm) or WBC elevation. Covid test pending, but patient reports negative covid and flu prior to arrival. W/u and management per hospitalists. Sats fine
on RA.
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 Phan 11/18/2024:
-Echo 11/21/24: Normal left ventricular systolic function. Estimated ejection fraction 55 to 60%. Mitral valve postrepair. Peak gradient 8 mmHg, mean gradient 3 mmHg. No mitral regurgitation detected.
HTN:
-monitor with medicine adjustments
Data Reviewed
-
EKG: Tracing Personally Visualized and interpreted (Atrial flutter 67 BPM)
Radiology: Report Reviewed by me (CXR 11/22/24: Right basilar opacity favored to represent a small pleural effusion with adjacent atelectasis and/or pneumonia. Mild elevation of the right hemidiaphragm. No pneumothorax. Stable cardiomediastinal
silhouette. Cardiac valve prosthesis and a left atrial appendage clip)
Labs: Labs Reviewed by me
[2024-12-20 09:36] LABS: COVID-19 Antigen Negative (Negative)
--- NOTE | 2024-12-20 10:12 | CONSULT.CT ---
Consultation
-
Date/Time Consultation Performed: 12/20/24, 10:20 AM
Performing Provider: Dandre Alcazar PA-C
Reason for Consultation: S/P MVR/MAZE/RUDI Clip, Readmission for atrial fibrillation
Patient History
Physicians
Family Physician: SUKUMAR Mckinney
Outpatient [place]: Jeffrey Villalobos
Inpatient [place]: Jose Godoy
History of Present Illness
This is an 79-year-old female who is status post minimally invasive mitral valve repair, cryo maze, left atrial appendage exclusion by Dr. Phan on 11/18/2024. She had an uneventful postoperative course and was discharged on postoperative day #4. She
presented the hospital today with complaints of tachycardia and dizziness. She was found to be in atrial fibrillation with rapid ventricular response. She was placed on a Cardizem drip and subsequently admitted. We were consulted given her recent
surgery.
Currently the patient is resting comfortably without complaints. She is in a rate controlled a flutter. Cardiology has been consulted. She has no specific complaints related to her surgical recovery and feels she is doing quite well from that
perspective. She was discharged on Eliquis at the time of discharge given her history of A-fib.
Past Medical History
-Mitral and tricuspid valve disease
-Paroxysmal atrial fibrillation on chronic anticoagulation
-Hypothyroidism
-Hyperlipidemia
-Prediabetes (hgb A1C 5.7)
-HPV
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
-Former tobacco use (quit 10yrs ago)
-Anxiety
Past Surgical History
Mitral valve repair, cryo maze, left atrial appendage clip by Dr. Phan via thoracotomy
Vaginal prolapse repair with mesh
Family History
Family Medical History: Other (Noncontributory)
Social History
Alcohol: None
Drug: None
Tobacco: Former Smoker
Allergies
Allergy/AdvReac Type Severity Reaction Status Date / Time
bee venom protein (honey bee) Allergy Swelling Verified 10/23/24 06:35
Home Medications
�Medication �Instructions �Recorded �Confirmed �Type
apixaban 5 mg tablet (Eliquis) 5 mg PO BID Blood Clot 10/17/24 12/19/24 History
Prevention/Tx
atenolol 25 mg tablet 25 mg PO DAILY Blood Pressure 10/17/24 12/19/24 History
calcium 315 mg (as 2 tab PO DAILY Supplement 10/17/24 12/19/24 History
citrate)-vitamin D3 6.25 mcg (250
unit) tablet (Citracal + Vitamin D
Maximum)
levothyroxine 100 mcg tablet 100 mcg PO DAILY Thyroid 10/17/24 12/19/24 History
multivitamin 1 tab PO DAILY Supplement 10/17/24 12/19/24 History
rosuvastatin 40 mg tablet 40 mg PO QPM High Cholesterol 10/17/24 12/19/24 History
acetaminophen 325 mg tablet 650 mg (2 x 325 mg) PO Q4HPRN PRN 11/21/24 12/19/24 Rx
mild pain,headache,temp >101F #0
tabs
Review of Systems
-
History Source: Patient
General: Reports Fatigue
HEENT: Reports No Symptoms
Respiratory: Reports No Symptoms
Cardiac: Reports Other (Tachycardia)
Abdomen/GI: Reports No Symptoms
: Reports No Symptoms
Musculoskeletal: Reports No Symptoms
Skin: Reports No Symptoms
Neurological: Reports No Symptoms
Vascular: Reports No Symptoms
Physical Exam
Vital Signs
Temp 97.7 F 12/20/24 07:39
Temp route: Oral 12/20/24 07:39
Pulse 70 12/20/24 09:30
Rhythm: Atrial flutter 12/20/24 08:00
With- Atrial fibrillation 12/20/24 08:00
Resp Rate 18 12/20/24 07:39
Blood pressure 119/99 12/20/24 08:08
Blood pressure extremity used: Right upper arm 12/20/24 07:39
Position: Lying 12/20/24 07:39
MAP (cuff-Grace Monitor) 107 12/20/24 07:41
SaO2 89 12/20/24 07:41
Oxygen Mode of Delivery Room air 12/20/24 08:00
Can the patient verbally communicate their pain? Yes 12/20/24 08:00
Actual Weight 71.5 kg 12/20/24 05:04
Body Mass Index (BMI) 27.1 12/20/24 05:04
Labs
12/20/24 05:11
12/20/24 05:11
Troponin I 0.027 ng/ml 12/19/24 15:58
Exam
General: Well Developed, Well Nourished and No Apparent Distress
HEENT: Normocephalic and Anicteric
Respiratory: Clear
Cardiac: S1/S2 and Other (Irregularly irregular rhythm)
GI: Soft, Non Tender and Non Distended
Rectal: Deferred by Provider
Skin: Warm and Dry
Neuro: Awake, Alert and Oriented
Psych: Calm
Assessment / Plan
-
1. Status post mitral valve repair, maze, left atrial appendage clip: There appears to be no acute surgical issues at this time. She continues to recover well from surgery. She has a history of atrial fibrillation and was discharged on Eliquis.
Recommend medical management of this per cardiology who is already on board. There are no other cardiothoracic surgical needs at this time. We will follow the patient peripherally. Please do not hesitate to contact us with any further questions
or concerns.
Data Reviewed
-
EKG: Tracing Personally Visualized and interpreted
Radiology: Image Personally Visualized and interpreted
Labs: Labs Reviewed by me
Old Records: Reviewed
Total Time Spent with Patient (in minutes): 60
--- NOTE | 2024-12-20 10:30 | RR ---
A Rapid Response was called on this patient, please see Rapid Response form.
[2024-12-20 10:34] LABS: Glucose - Point of Care 163 mg/dl (70-99)
[2024-12-20 10:55] LABS: Hematocrit 38.4 % (37.0-47.0); Hemoglobin 12.6 g/dL (12.0-16.0); Mean Corp Hgb Conc. 32.8 g/dL (33.0-37.0); Mean Corpuscular Volume 88.3 fL (81.0-99.0); Platelet Count 198 10^3/uL (130-400); Red Cell Dist. Width 14.4 % (11.5-14.5)
[2024-12-20] MEDS: CARDIZEM 125 IV (11:07)
[2024-12-20 11:20] LABS: Blood Urea Nitrogen 12 mg/dl (7-17); Calcium 9.3 mg/dl (8.4-10.2); Carbon Dioxide 26 mmol/L (22-30); Chloride 104 mmol/L (98-107); Estimated Creatinine Clearance 48 ml/min; Glucose 198 mg/dl (70-99); Potassium 3.9 mmol/L (3.5-5.1); Sodium 140 mmol/L (135-145); eGFR > 60.00
[2024-12-20 11:30] LABS: Troponin I 0.025 ng/ml
[2024-12-20] MEDS: CRESTOR 40 MG PO (18:17)
--- NOTE | 2024-12-20 19:19 | PTCARENOTE ---
~[id number]: Handoff report received from nightshift RN. Pt AOx4, Aflutter 67, SBP 110s, RA. Occassional + cough noted, covid swab sent to lab. Ax1 to bathroom. Cardizem gtt infusing @ 5. Patient did breifly go into afib 80s-90s around 0800. Daughter
at bedside. All needs met at this time, call eugene within reach.
~[id number]: Cardizem gtt changed to Amiodarone bolus and gtt.
Around 1030 amoi bolus initiated. About 1 minute later, patient stared to cough and then held her head and stated 'i do not feel right.' Then she appears to begin to shiver and shut her eyes and went unresponsive with snoring respirations. Sternal
rubs administered with no response. Amiodarone infusion immediately stopped. Rapid response called, See Rapid Response paperwork. Blood pressure obtained 148/110 and Tele showed Afib RVR 130s-140s, desat to 87%, 2L NC applied. Dr. Ngo in to assist
order verbal order for NSS 150ml/hr. After about 4 mins, patient became reponsive, HR Afib 120s-130s, BP 154/111. CBC, BMP, and trop drawn and sent to lab for processing. Gradually patient became more alert and talkative.
~[id number]: Amiodarone dc/'d, per Dr. Godoy, add medication to allergy list. Patient placed back on cardizem gtt @ 5 gor HR goal 60s-100s. Patient resting in bed with daughter at bedside. Pt AOx4, Aflutter/ afib 70s-80s on tele, 2L NC satting 95%.
Standby assist to commode. all needs met at this time, call eugene within reach.
~2188-2076: Patient resting in bed. daughter at bedside. Appetite has returned from events earlier in the day. AOx4, Afib/aflutter 70s, SBP 110s-130s, 2L NC 95%. Patient denies pain at this time. All needs met, call eugene within reach. Handoff report
given to nightshift RN.
[2024-12-21] VITALS (8 sets, daily range): BP systolic 115–145; BP diastolic 68–84; BMI 26.4
--- NOTE | 2024-12-21 00:08 | PTCARENOTE ---
assumed care of patient at the change of shift. AAOx3. denies any pain. Aflutter on tele - 60s-80s. bp stable. cardizem gtt infusing at 5 ml/hr. denies any pain. BM x1. standby assist to the bathroom. monitored patient sp02 level without oxygen. on
RA- sp02 88-90%. patient denies any difficulty breathing. diminished lung sounds on the R base/fine crackles on the L base. placed patient back on 2L NC- 99%. educated patient to inform RN with any changes overnight. call eugene within reach. makes
needs known.
[2024-12-21] MEDS: SYNTHROID 100 MCG PO (06:05)
--- NOTE | 2024-12-21 06:56 | PTCARENOTE ---
attempted to take patient of O2 this morning. on RA- 88-90%- sitting in the chair. denies any sob. appears comfortable. placed patient back on 2L- 92%.
[2024-12-21] MEDS: TOPROL XL 25 MG PO ×2 (07:59→20:07)
[2024-12-21] MEDS: ELIQUIS 5 MG PO ×2 (07:59→20:06)
--- NOTE | 2024-12-21 08:43 | W.PN.HOSP.TC ---
Addendum entered and electronically signed by Josh Hoyos DO 12/21/24 11:40:
CT chest shows new right lower lobe consolidation with air bronchograms. Tiny right pleural effusion.
Difficult to tell if this is atelectasis at the right lower lobe versus pneumonia, or both.
At this point given ongoing symptoms of cough we can give a trial of antibiotics.
Original Note:
Today's Communication/Plan
-
Check CT chest
N.p.o. after midnight
Assessment / Plan
Assessment / Plan
Gen-AAOx3, NAD
HEENT-NC, AT, anicteric, clear oral mm
Neck-supple
CV-reg, no M, +S1/S2
Lungs-clear B/L
Abd-soft, NT, ND
Ext-no edema
Musculoskeletal-no cyanosis, clubbing
Skin-warm and dry
Neuro-grossly non-focal
Psych-calm, cooperative
Rapid atrial flutter -now rate controlled on IV Cardizem infusion. Toprol-XL 25 mg twice daily.
Continue Eliquis.
Plan for cardioversion tomorrow. N.p.o. after midnight.
11/18/24: Underwent right minithoracotomy, radical mitral valve repair, surgical cryo maze of the left atrium, left atrial appendage exclusion using a 35mm clip.
Syncope -12/20. Occurred within 1 minute of IV amiodarone. Differential diagnosis of vasovagal versus drug reaction. Amiodarone discontinued. She did have a cough prior to onset.
Subacute bronchitis -has been coughing for a little over a week. COVID, influenza, RSV negative reportedly in her PCPs office on Sunday. COVID antigen here negative.
Admission chest x-ray shows small right basilar opacity possibly representing small effusion with adjacent atelectasis, clinically doubt pneumonia. Pulse ox normal on room air.
Given persistent symptoms with check CT chest without contrast today, evaluate for pneumonia, effusions. Discussed with patient.
Postoperative effusions most likely diagnosis.
Paroxysmal atrial fibrillation -as above.
Severe mitral regurgitation -treated with mitral valve repair as above.
Hypothyroidism -continue levothyroxine. TSH 5.6, free T4 1.3.
Hyperlipidemia -rosuvastatin.
Normocytic anemia -appears to be chronic. Hemoglobin stable. Monitor for now.
Full code
Anticipated Discharge: > 48 hours
Subjective/Interval History
-
Date of Service: December 21, 2024
Patient seen and examined, complaining of persistent cough.
Objective Data
-
Vital Signs:
Vital Signs
Temp Pulse Resp BP Pulse Ox
97.6 F 83 17 123/75 92
12/21/24 07:30 12/21/24 07:59 12/21/24 07:30 12/21/24 07:59 12/21/24 07:30
I&O
12/20/24 12/21/24 12/22/24
06:59 06:59 06:59
Intake Total 300 / 300 250 / 250
Balance 300 / 300 250 / 250
Review of Systems
-
History Source: Patient
All other systems: Reviewed and negative
[2024-12-21] MEDS: MUCINEX 600 MG PO ×2 (08:58→20:06)
[2024-12-21] MEDS: CARDIZEM 125 IV (09:18)
--- NOTE | 2024-12-21 09:23 | W.PN.CD ---
Today's Communication / Plan
-
IV diltiazem
DCCV tomorrow
Impression / Plan
-
Atrial flutter, type unknown, with RVR
-severe, requiring hospitalization
-fast rates on arrival, now well controlled on IV diltiazem.
-we tried IV amiodarone, and she reacted with HTN, headache, altered mental status
-continue IV diltiazem, with monitoring of tele
-continue Toprol XL 25mg bid
-CHADS2-VASC = 4. Eliquis 5mg bid, with no missed doses
-if remains in atrial flutter tomorrow, will proceed with DCCV
Cough:
-plan for CT chest today per hospitalist
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 Phan 11/18/2024:
-Echo 11/21/24: Normal left ventricular systolic function. Estimated ejection fraction 55 to 60%. Mitral valve postrepair. Peak gradient 8 mmHg, mean gradient 3 mmHg. No mitral regurgitation detected.
HTN:
-monitor with medicine adjustments above
Physical Exam
Vital Signs/Labs
Vital Signs
Temp Pulse Resp BP Pulse Ox
97.6 F 83 17 123/75 92
12/21/24 07:30 12/21/24 07:59 12/21/24 07:30 12/21/24 07:59 12/21/24 07:30
12/20/24 12/21/24 12/22/24
06:59 06:59 06:59
Actual Weight 71.5 kg 69.8 kg
12/20/24 10:48
12/20/24 10:48
Magnesium 1.9 mg/dl (1.6-2.3) 12/20/24 05:11
Triglycerides 158 mg/dl (10-149) H 12/20/24 05:11
LDL Cholesterol, Calc 36 mg/dl 12/20/24 05:11
VLDL Cholesterol, Calc 31 mg/dl (0-30) H 12/20/24 05:11
HDL Cholesterol 40 mg/dl 12/20/24 05:11
Free T4 1.34 ng/dl (0.78-2.19) 12/20/24 05:11
LAB Results
12/19/24 12/20/24
15:58 10:48
Troponin I 0.027 0.025
Physical Exam
Constitutional: No acute distress and Comfortable
EENT: Moist mucous membranes
Cardiovascular: Pedal edema is absent, JVD pressure is normal, Systolic murmur absent and Rhythm/rate is irregular
Respiratory: Respiratory effort normal and Lungs clear to auscul.
Neuro/Psych: AO x 3
Data Reviewed
-
Date of Service: December 21, 2024
EKG: Other (Tele: A flutter 60s)
Labs: Labs Reviewed by me
[2024-12-21] MEDS: VIBRAMYCIN 100 MG PO ×2 (12:18→20:06)
[2024-12-21] MEDS: ROCEPHIN 1000 MG IV (12:19)
[2024-12-21] MEDS: STERILE WATER FOR INJECTION 10 ML IV (12:19)
[2024-12-21] MEDS: CRESTOR 40 MG PO (18:12)
--- NOTE | 2024-12-21 19:21 | PTCARENOTE ---
~[id number]: Handoff report received from nightshift RN. Pt OOB in chair. AOx4, Aflutter 60s on tele, SBP 110s-120s, 2L NC satting 92%, RLL diminished, LLL coarse crackles. Patient denies pain at this time. Cardizem running @ 5. All needs met at
this time, call eugene within reach.
~[id number]: Chest CT ordered for cough and lung sounds, patient transported via wheelchair. Patient took holy communion from volunteer.
~[id number]: CTS PA in to patient regarding previouse MAZE procedure and planned cardioversion for tomorrow. All needs met at this time, call eugene within reach.
~[id number]: Patient family requests IS, IS given and order placed. Education given on proper IS technique and what to expect with proper use. Ordered Abx started. All needs met at this time, call eugene within reach.
~[id number]: Patient back in bed. Standby assist back and form to bathroom with family throughout the shift. Aflutter 68, satting 95% on 1L NC, trialed on RA at this time. Denies pain. All needs met, call eugene within reach. Handoff report given to
nightshift RN.
--- NOTE | 2024-12-22 01:25 | PTCARENOTE ---
Rec'd pt at change of shift. Pt AAO*3, VSS, and AFlutter on TELE monitor. Pt denies any pain or discomfort. Cardizem infusing as ordered. NPO at midnight for possible CV in morning. Pt now resting with call eugene in reach. Pt verbalizes plans to
refuse CV without talking with DR daniel vizcarra. CT WINSTON Hines notified. Pt now resting with call eugene in reach. See MAr and flowchart for full pt care and assessment.
[2024-12-22 02:58] VITALS: BP 132/70
[2024-12-22 02:59] VITALS: BP 132/70
[2024-12-22 03:01] VITALS: BMI 26.7
[2024-12-22] MEDS: SYNTHROID 100 MCG PO (06:33)
[2024-12-22 07:53] VITALS: BP 133/73
[2024-12-22 08:54] VITALS: BP 142/75
[2024-12-22] MEDS: TOPROL XL 25 MG PO (08:54)
[2024-12-22] MEDS: ELIQUIS 5 MG PO (08:54)
[2024-12-22] MEDS: VIBRAMYCIN 100 MG PO (08:55)
[2024-12-22] MEDS: MUCINEX 600 MG PO (08:55)
--- NOTE | 2024-12-22 09:16 | PTCARENOTE ---
Report given to Yue ARNOLD in the laborer aquatic life
--- NOTE | 2024-12-22 10:13 | W.PN.HOSP.TC ---
Today's Communication/Plan
-
Cleared by cardiology for discharge today
Assessment / Plan
Assessment / Plan
Rapid atrial flutter -in normal sinus rhythm status post cardioversion. Toprol-XL 25 mg twice daily. Cleared by cardiology for discharge. Continue Eliquis.
11/18/24: Underwent right minithoracotomy, radical mitral valve repair, surgical cryo maze of the left atrium, left atrial appendage exclusion using a 35mm clip.
Syncope -12/20. Occurred within 1 minute of IV amiodarone. Differential diagnosis of vasovagal versus drug reaction. Amiodarone discontinued. She did have a cough prior to onset.
Possible pneumonia-has been coughing for a little over a week. COVID, influenza, RSV negative reportedly in her PCPs office on Sunday. COVID antigen here negative.
Admission chest x-ray shows small right basilar opacity possibly representing small effusion with adjacent atelectasis, clinically doubt pneumonia. Pulse ox normal on room air.
Chest CT shows possible pneumonia versus atelectasis, currently on IV Rocephin and oral doxycycline. Will discharge on oral doxycycline to complete a 5-day course
Paroxysmal atrial fibrillation -as above.
Severe mitral regurgitation -treated with mitral valve repair as above.
Hypothyroidism -continue levothyroxine. TSH 5.6, free T4 1.3.
Hyperlipidemia -rosuvastatin.
Normocytic anemia -appears to be chronic. Hemoglobin stable. Monitor for now.
DVT prophylaxis�Eliquis
Full code
Physical Exam
General: No acute distress
HEENT: Normocephalic, Atraumatic, EOMI, MMM
Respiratory: Clear to Auscultation bilaterally
Cardiac: Normal S1/S2, Regular Rate and Rhythm
GI: Soft, Nontender, Nondistended, Normal Bowel Sounds
Extremities: No Clubbing, Cyanosis, or Edema
Neuro: Nonfocal/Grossly Intact
Psych: Calm, Cooperative
Derm: No Visible lesions
Anticipated Discharge: Today
Subjective/Interval History
-
Date of Service: December 22, 2024
Patient reports feeling better after her cardioversion. Her cough has improved. Denies shortness of breath. No fever, no vomiting.
Objective Data
-
Vital Signs:
Vital Signs
Temp Pulse Resp BP Pulse Ox
97.3 F 77 20 142/75 94
12/22/24 07:55 12/22/24 09:00 12/22/24 07:55 12/22/24 08:54 12/22/24 07:55
I&O
12/21/24 12/22/24 12/23/24
06:59 06:59 06:59
Intake Total 250 / 250 480 / 480
Balance 250 / 250 480 / 480
[2024-12-22 11:16] VITALS: BP 145/90
--- NOTE | 2024-12-22 11:19 | PTCARENOTE ---
Patient received from the manager cath lab. BP 145/90, NSR 78. POX 94% on room air
--- NOTE | 2024-12-22 11:28 | W.PN.CD ---
Today's Communication / Plan
-
S/p DCCV. Back in sinus rhythm.
OK for discharge from CV standpoint.
Continue Eliquis and Metoprolol (switched from home Atenolol).
She will follow up with Dr. Villalobos.
Impression / Plan
-
Atrial flutter, type unknown, with RVR
-severe, requiring hospitalization
-fast rates on arrival, now back in sinus rhythm s/p cardioversion
-continue Toprol XL 25mg bid
-CHADS2-VASC = 4. Eliquis 5mg bid, with no missed doses
Cough:
-CT chest with RLL consolidation, atelectasis vs. pneumonia
-Continue IV abx
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 Phan 11/18/2024:
-Echo 11/21/24: Normal left ventricular systolic function. Estimated ejection fraction 55 to 60%. Mitral valve postrepair. Peak gradient 8 mmHg, mean gradient 3 mmHg. No mitral regurgitation detected.
HTN:
-monitor with medicine adjustments above
Subjective: Anxious about cardioversion.
Physical Exam
Vital Signs/Labs
Vital Signs
Temp Pulse Resp BP Pulse Ox
97.3 F 80 15 142/75 94
12/22/24 07:55 12/22/24 11:12 12/22/24 11:16 12/22/24 08:54 12/22/24 11:16
12/21/24 12/22/24 12/23/24
06:59 06:59 06:59
Actual Weight 153 lb 14.122 oz 155 lb 6.814 oz
12/20/24 10:48
12/20/24 10:48
Magnesium 1.9 mg/dl (1.6-2.3) 12/20/24 05:11
Triglycerides 158 mg/dl (10-149) H 12/20/24 05:11
LDL Cholesterol, Calc 36 mg/dl 12/20/24 05:11
VLDL Cholesterol, Calc 31 mg/dl (0-30) H 12/20/24 05:11
HDL Cholesterol 40 mg/dl 12/20/24 05:11
Free T4 1.34 ng/dl (0.78-2.19) 12/20/24 05:11
LAB Results
12/19/24 12/20/24
15:58 10:48
Troponin I 0.027 0.025
Physical Exam
Constitutional: No acute distress and Comfortable
Cardiovascular: Pedal edema is absent, Rhythm/rate is irregular, S1S2 is normal and Murmur/rub/gallop absent
Respiratory: Respiratory effort normal and Lungs clear to auscul.
Neuro/Psych: AO x 3
Data Reviewed
-
Date of Service: December 22, 2024
Medical Decision Making: Reviewed Test Results, Test Interpretation and Review of Case with other Provider
EKG: Tracing Personally Visualized and interpreted
Echo: Report Reviewed by me
Labs: Labs Reviewed by me
[2024-12-22 11:36] VITALS: BP 146/84
--- NOTE | 2024-12-22 12:23 | W.DCSUMMARY ---
Discharge Summary
Discharge Data
Date of Admission: 12/19/24
Date of Discharge: 12/22/24
-
Pending Results: No
Hospital Course
Discharge diagnosis:
Atrial flutter/fib with rapid ventricular response
Syncope
Possible pneumonia
Severe mitral regurgitation status post repair
Hypothyroidism
Consults: Cardiology, CT surgery
Procedures:
12/22/2024 successful cardioversion
Hospital course:
79-year-old female with a past medical history of atrial fibrillation on Eliquis, hypothyroidism, and myxomatous mitral valve status post recent repair was admitted for atrial flutter with rapid ventricular response. Patient was seen in conjunction
with cardiology. She was started on IV amiodarone, and had syncope. Amiodarone was discontinued. She was then treated with IV diltiazem and Toprol XL 25 mg twice a day. She underwent successful cardioversion on 12/22/2024, and was in normal
sinus rhythm.
Patient also complained of a cough. She states that she had COVID, influenza, and RSV checked at her PCP's office, all of which were negative. Chest CT shows possible RLL pneumonia versus atelectasis. She was treated with IV Rocephin and oral
doxycycline. She will be discharged on doxycycline to complete a 5-day course.
Patient is medically stable and cleared by cardiology for discharge on Eliquis and Toprol XL. She can follow-up with her PCP in 1 week, and her usual precision optics technician in the office in 2-3 weeks.
Disposition: Home self-care
Discharge planning: Required 38 minutes
Discharge Plan
-
Patient Disposition: Home (Routine Discharge)
Discharge Diagnosis/Procedures: Atrial flutter with rapid ventricular response, cough, possible pneumonia
Condition: Good
Diet: Low Fat and Low Cholesterol
Activity: As tolerated
Driving Restrictions: As prior to admission
Activity Restrictions/Additional Instructions:
Please follow-up with your usual precision optics technician in 2-3 weeks, and your primary care provider in 1 week.
Referrals:
Radha Turcios CRNP [Family Provider] - in one week
Merle Valencia CRNP [Specified Professional Personl, Cardiac Surgery] - 12/25/24 1:00 pm
Prescriptions:
New
doxycycline hyclate 100 mg Capsule
100 mg PO Q12 4 Days Qty: 8 0RF
metoprolol succinate 25 mg Tablet Extended Release 24 Hr
25 mg PO BID Qty: 60 0RF
guaifenesin 600 mg Tablet Extended Release 12hr
600 mg PO Q12 6 Days Qty: 12 0RF
Continued
multivitamin Tablet
1 tab PO DAILY
levothyroxine 100 mcg Tablet
100 mcg PO DAILY
rosuvastatin 40 mg Tablet
40 mg PO QPM
calcium citrate-vitamin D3 [Citracal + D Maximum] 315 mg-6.25 mcg (250 unit) Tablet
2 tab PO DAILY
acetaminophen 325 mg Tablet
650 mg PO Q4HPRN PRN (Reason: mild pain,headache,temp >101F ) Qty: 0 0RF
Eliquis 5 mg Tablet
5 mg PO BID Qty: 60 1RF
Discontinued
atenolol 25 mg Tablet
25 mg PO DAILY
Discharge Orders:
Discharge Patient (As Directed); Ordered 12/22/24
Ordered By: Joesph Torres
Care Plan Goals
Care Plan Goals:
Problem: Readiness for enhanced knowledge related to diagnosis and treatment plan
Goal: Understand your diagnosis and treatment plan needs, including medications if applicable.
Instructions: Know your diagnosis, underlying causes and treatment plan options, including medications if applicable. Consult with your health care team to learn about your diagnosis and treatment plan, including medications if applicable.
Discharge Date and Time
Discharge Date/Time: 12/22/24 15:04
Print Language: ARABIC
[2024-12-22] MEDS: STERILE WATER FOR INJECTION IV (13:15)
[2024-12-22] MEDS: ROCEPHIN IV (13:15)
--- NOTE | 2024-12-22 14:39 | PTCARENOTE ---
Patient discharged to home. IV and telemetry removed. Instructions reviewed with patient and daughter, they verbalized understanding. Instructed to follow up with cardiology for a new prescription renewal for Eliquis. Patient escorted to [facility]
in a wheelchair
--- NOTE | 2024-12-22 15:13 | CM ---
spoke to pt in room, she adri martin, lives withher daughter in a 2 story home with 5 steps to enter. she denies any dme's or dc planning needs. plan is for dc to home today.
== END 2024-12-22 15:04 | disposition home or self-care (01) | DRG 310 ==
LOC: IVU 20:42
PROVIDERS: Emergency Medicine; Hospitalist; Student in an Organized Health Care Education/Training Program; ADMITTING PHYSICIAN Hospitalist; ATTENDING PHYSICIAN Family Medicine; CONSULT PHYSICIAN Internal Medicine; EMERGENCY PHYSICIAN Emergency Medicine; OTHER PHYSICIAN Thoracic Surgery (Cardiothoracic Vascular Surgery)
PROC: 5A2204Z Restoration of Cardiac Rhythm, Single (ICD-10-PCS; 2024-12-22)
DX: I48.92 Unspecified atrial flutter (principal); E03.9 Hypothyroidism, unspecified; I48.0 Paroxysmal atrial fibrillation; Z87.891 Personal history of nicotine dependence; Z79.890 Hormone replacement therapy; E78.00 Pure hypercholesterolemia, unspecified; Z79.01 Long term (current) use of anticoagulants; Z79.899 Other long term (current) drug therapy; F41.9 Anxiety disorder, unspecified; I10 Essential (primary) hypertension; R73.03 Prediabetes; D64.9 Anemia, unspecified; Z11.52 Encounter for screening for COVID-19
CPT/HCPCS: 71046; 71250; 80048; 80053; 80061; 82962; 83735; 84439; 84443; 84484; 85025; 85027; 87811; 92960; 93005; 96365; 96366; 99284; J0282